=== PATIENT | male | born 1970 | race Caucasian/White ===

== ENCOUNTER 2017-03-08 06:02 | Day surgery (SDC) | payer OTHER ==
[2017-03-08] MEDS ORDERED: Lactated Ringers 1,000 ML IV SCH (07:00)
--- NOTE | 2017-03-08 08:35 | OP ---
SURGERY DATE: 03/08/17 SURGERY TIME: 756 PREOPERATIVE DIAGNOSIS: 1. SCREENING COLONOSCOPY. 2. FAMILY HISTORY OF COLON CANCER. 3. INTERMITTENT DIARRHEA. POSTOPERATIVE DIAGNOSIS: 1. NORMAL COLON. PROCEDURE: 1. Colonoscopy. SURGEON: Dr. Eleazar Saucedo. ANESTHESIA: MAC by Cecil Palmer CRNA. SPECIMENS: None. ESTIMATED BLOOD LOSS: None. DESCRIPTION OF PROCEDURE: After informed written consent was obtained, the patient was taken to the endoscopy suite. He underwent monitored anesthesia and a digital rectal exam showed normal sphincter tone and no internal lesions. The scope was then inserted in the rectum and sequentially the entire colonic mucosa was traversed. The level of the cecum was reached and verified with direct visualization of the ileocecal valve. Upon withdrawal, careful mucosal inspection revealed no obvious mucosal abnormalities. Prior to withdrawal, retroflexion was performed within normal limits. The scope was removed and the patient was transferred to the recovery room in excellent condition.
[2017-03-08] MEDS ORDERED: Ketamine HCl 50 MG/ML IV ONE (09:00)
[2017-03-08] MEDS ORDERED: DIPRIVAN 200 MG/20 ML IV ONE (09:00)
[2017-03-08 09:38] VITALS: O2SAT 98
[2017-03-08 09:42] VITALS: BP 139/77; PULSE 87
== END 2017-03-08 09:20 | disposition home or self-care (01) ==
LOC: SDC 06:02
PROVIDERS: ATTEND Family Medicine
PROC: 0DJD8ZZ Inspection of Lower Intestinal Tract, Via Natural or Artificial Opening Endoscopic (ICD-10-PCS; principal; 2017-03-08)
DX: Z12.11 Encounter for screening for malignant neoplasm of colon (principal); Z80.0 Family history of malignant neoplasm of digestive organs; R19.7 Diarrhea, unspecified
CPT/HCPCS: 00810; J2704

== ENCOUNTER 2018-04-01 14:36 | Observation (INO) | payer OTHER ==
--- NOTE | 2018-04-01 15:01 | ERPHSYRPT ---
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 PT ambulates with an upright steady gait, able to speakin clear full sentences. PT slightly tachypneic, arrived with an 18 G iv on left ac via EMS crew. PTdenies apain upon arrival. 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 ADMININSTERED 4 BABY ASPIRIN VIA EMS AND NITROGLYCERIN 0.4MG X 3 DOSES WITH COMPLETE RELIEF. DENIES COUGH OR FEVER. STATES PAIN RADIATES TO BOTH SHOULDERS. Timing/Duration: today Activities at Onset: activity Quality: pressure, sharpness Location: substernal Chest Pain Radiation: no radiation, arm Severity of Pain-Max: severe Severity of Pain-Current: mild Modifying Factors: Improves With: movement Associated Symptoms: diaphoresis Prior Chest Pain/Cardiac Workup: angina Nitro Today/Relief: 0.4 mg x 3, provided by EMS, complete relief Aspirin Treatment Today: 81 mg x 4, provided by ED Allergies/Adverse Reactions: No Known Drug Allergies Allergy (Verified 04/01/18 14:47) Home Medications: Amlodipine Besylate 10 mg [Norvasc 10 MG] 10 mg PO DAILY 03/07/17 [History] Clonidine HCl 0.1 mg [Catapres 0.1 MG] 0.1 mg PO 03/07/17 [History] Lisinopril 20 mg [Zestril 20 MG] 20 mg PO DAILY 03/07/17 [History] PANTOPRAZOLE 40 mg Tablet [Protonix 40MG Tablet] 40 mg PO [facility] 03/08/17 [ History] Zolpidem Tartrate [Ambien] 10 mg PO 03/08/17 [History] Desvenlafaxine [Desvenlafaxine ER] 100 mg PO DAILY 04/01/18 [History] Doxepin HCl 100 mg PO HS 04/01/18 [History] Hx Tetanus, Diphtheria Vaccination/Date Given: No Hx Influenza Vaccination/Date Given: Yes Hx Pneumococcal Vaccination/Date Given: Yes Immunizations Up to Date: Yes - Review of Systems Constitutional: No Fever, No Chills Eyes: No Symptoms Ears, Nose, & Throat: No Symptoms Respiratory: Dyspnea, Dyspnea on Exertion (LOVETT), No Cough Cardiac: Chest Pain, No Edema, No Syncope Abdominal/Gastrointestinal: No Symptoms, No Abdominal Pain, No Nausea, No Vomiting, No Diarrhea Genitourinary Symptoms: No Symptoms, No Dysuria Musculoskeletal: No Symptoms, No Back Pain, No Neck Pain Skin: No Symptoms, No Rash Neurological: No Dizziness, No Focal Weakness, No Sensory Changes Psychological: No Symptoms Endocrine: No Symptoms All Other Systems: Reviewed and Negative - Past Medical History Pertinent Past Medical History: Yes Neurological History: No Pertinent History ENT History: No Pertinent History Cardiac History: Hypertension Respiratory History: No Pertinent History Endocrine Medical History: No Pertinent History Musculoskeletal History: No Pertinent History GI Medical History: GERD History: No Pertinent History Psycho-Social History: No Pertinent History Male Reproductive Disorders: No Pertinent History Other Medical History: SOB with exertion prior to controlling htn 2 months ago - Past Surgical History Past Surgical History: No Neuro Surgical History: No Pertinent History Cardiac: No Pertinent History Respiratory: No Pertinent History Gastrointestinal: No Pertinent History Genitourinary: No Pertinent History Musculoskeletal: No Pertinent History Male Surgical History: No Pertinent History - Social History Smoking Status: Never smoker Exposure to second hand smoke: No Drug Use: none Patient Lives Alone: No - Nursing Vital Signs Nursing Vital Signs: Initial Vital Signs Temperature 98.6 F 04/01/18 14:41 Pulse Rate 80 04/01/18 14:41 Respiratory Rate 22 04/01/18 14:41 Blood Pressure 89/62 04/01/18 14:41 O2 Sat by Pulse Oximetry 100 04/01/18 14:41 Pain Scale Pain Intensity 4 - Physical Exam General Appearance: no apparent distress, alert Eye Exam: PERRL/EOMI, eyes nml inspection Ears, Nose, Throat Exam: normal ENT inspection, moist mucous membranes Neck Exam: normal inspection, non-tender, supple, full range of motion Respiratory Exam: normal breath sounds, lungs clear, No respiratory distress Cardiovascular Exam: regular rate/rhythm, normal heart sounds Gastrointestinal/Abdomen Exam: soft, normal bowel sounds, No tenderness, No mass Back Exam: normal inspection, No CVA tenderness, No vertebral tenderness Extremity Exam: normal inspection, normal range of motion Neurologic Exam: alert, oriented x 3, cooperative, normal mood/affect, sensation nml, No motor deficits Skin Exam: normal color, warm, dry SpO2: 100 Oxygen Delivery: Room Air - Course EKG Interpreted by Me: RATE, Sinus Rhythm, NORMAL AXIS (RATE 91) - Radiology Exams Chest X-ray Interpretation: Discussed w/ radiologist, Negative Ordered Tests: Active Orders 24 hr Category Date Time Status Up With Assistance ROUTINE Activity 04/01/18 16:32 Ordered Call Admit Doctor for Orders ROUTINE Care 04/01/18 16:31 Ordered Code Status Order ROUTINE Care 04/01/18 16:31 Ordered EKG-ER Only STAT Care 04/01/18 15:02 Active IV Care Q6H Care 04/01/18 16:31 Ordered IV Insertion STAT Care 04/01/18 15:02 Active Implement Chest Pain Pathway ROUTINE Care 04/01/18 16:31 Ordered Oxygen-ED Only NASAL CANNULA 2 lpm Care 04/01/18 15:[address] in Observation ROUTINE Care 04/01/18 16:31 Ordered Julian Hose, Apply ROUTINE Care 04/01/18 16:31 Ordered Telemetry ROUTINE Care 04/01/18 16:31 Ordered Vital Signs Q4H Care 04/01/18 16:31 Ordered Weight,Daily 0600 Care 04/01/18 16:31 Ordered Cardiac Diet Diet 04/01/18 Breakfast Ordered CHEST 1 VIEW (PORTABLE) Stat Exams 04/01/18 15:02 Completed BNP [NT PRO BNP] Stat Lab 04/01/18 15:30 Completed CBC W DIFF Stat Lab 04/01/18 15:30 Completed CMP Stat Lab 04/01/18 15:30 Completed D-DIMER QUANTITATION Stat Lab 04/01/18 15:30 Completed LIPID PROFILE AM.LAB Lab 04/02/18 04:00 Ordered PROTIME WITH INR Stat Lab 04/01/18 15:30 Completed TROPONIN Q3H Lab 04/01/18 15:30 Completed TROPONIN Q3H Lab 04/01/18 18:15 Ordered TROPONIN Q3H Lab 04/01/18 21:15 Ordered TROPONIN Q3H Lab 04/02/18 00:15 Ordered TROPONIN Q3H Lab 04/02/18 03:15 Ordered EKG Q8HX2,QAMX3,PRN RT 04/01/18 16:31 Ordered Pulse Oximetry Q4H RT 04/01/18 16:31 Ordered Transfer Order Routine Transfer 04/01/18 Ordered Medication Summary Generic Name Dose Route Start Last Admin Trade Name Ganesh PRN Reason Stop Dose Admin Sodium Chloride 1,000 mls @ 200 mls/hr 04/01/18 15:15 04/01/18 15:35 Sodium Chloride 0.9% 1000 Ml IV 05/01/18 15:14 200 mls/hr .Q5H TAYLER Administration Discontinued Medications Generic Name Dose Route Start Last Admin Trade Name Ganesh PRN Reason Stop Dose Admin Enoxaparin Sodium 100 mg 04/01/18 16:02 Enoxaparin Sodium 1 mg/kg (100 mg) 04/01/18 16:03 SQ STAT ONE Morphine Sulfate 4 mg 04/01/18 15:02 04/01/18 15:35 Morphine Sulfate 4 Mg Inj IV 04/01/18 15:03 4 mg STAT ONE Administration Morphine Sulfate Confirm 04/01/18 15:32 Morphine Sulfate 4 Mg Inj Administered 04/01/18 15:33 Dose 4 mg .ROUTE .STK-MED ONE Ondansetron HCl 4 mg 04/01/18 15:02 04/01/18 15:35 Zofran 4 Mg/2 Ml Vial IV 04/01/18 15:03 4 mg STAT ONE Administration Ondansetron HCl Confirm 04/01/18 15:32 Zofran 4 Mg/2 Ml Vial Administered 04/01/18 15:33 Dose 4 mg .ROUTE .STK-MED ONE Lab/Rad Data: Laboratory Result Diagrams 04/01/18 15:30 04/01/18 15:30 Laboratory Results 04/01/18 04/01/18 04/01/18 Range/Units 15:30 15:30 15:30 WBC (4.0-10.5) K/mm3 RBC (4.1-5.6) M/mm3 Hgb (12.5-18.0) gm/dl Hct (42-50) % MCV (78-100) fl MCH (26-32) pg MCHC (32-36) g/dl RDW (11.5-14.0) % Plt Count (150-450) K/mm3 MPV (6-9.5) fl Gran % (36.0-66.0) % Eos # (Auto) (0-0.5) Absolute Lymphs (auto) (1.0-4.6) Absolute Monos (auto) (0.0-1.3) Lymphocytes % (24.0-44.0) % Monocytes % (0.0-12.0) % Eosinophils % (0.00-5.0) % Basophils % (0.0-0.4) % Absolute Granulocytes (1.4-6.9) Basophils # (0-0.4) PT 12.0 (8.83-12.87) SECONDS INR 1.03 (0.8-3.0) D-Dimer 728 H* (215-500) ng/mL Sodium (137-145) mmol/L Potassium (3.5-5.1) mmol/L Chloride (98-107) mmol/L Carbon Dioxide (22-30) mmol/L Anion Gap (5-15) MEQ/L BUN (9-20) mg/dL Creatinine (0.66-1.25) mg/dL Estimated GFR ML/MIN Glucose (74-106) mg/dL Calcium (8.4-10.2) mg/dL Total Bilirubin (0.2-1.3) mg/dL AST (17-59) U/L ALT (0-50) U/L Alkaline Phosphatase (38-126) U/L Troponin I < 0.012 (0.000-0.034) ng/mL NT-Pro-B Natriuret Pep 84.0 (0-450) pg/mL Serum Total Protein (6.3-8.2) g/dL Albumin (3.5-5.0) g/dL 04/01/18 04/01/18 Range/Units 15:30 15:30 WBC 8.9 (4.0-10.5) K/mm3 RBC 4.21 (4.1-5.6) M/mm3 Hgb 13.2 (12.5-18.0) gm/dl Hct 37.7 L (42-50) % MCV 89.5 (78-100) fl MCH 31.4 (26-32) pg MCHC 35.0 (32-36) g/dl RDW 12.7 (11.5-14.0) % Plt Count 380 (150-450) K/mm3 MPV 8.9 (6-9.5) fl Gran % 72.6 H (36.0-66.0) % Eos # (Auto) 0.11 (0-0.5) Absolute Lymphs (auto) 1.46 (1.0-4.6) Absolute Monos (auto) 0.85 (0.0-1.3) Lymphocytes % 16.4 L (24.0-44.0) % Monocytes % 9.5 (0.0-12.0) % Eosinophils % 1.2 (0.00-5.0) % Basophils % 0.3 (0.0-0.4) % Absolute Granulocytes 6.47 (1.4-6.9) Basophils # 0.03 (0-0.4) PT (8.83-12.87) SECONDS INR (0.8-3.0) D-Dimer (215-500) ng/mL Sodium 132 L (137-145) mmol/L Potassium 4.4 (3.5-5.1) mmol/L Chloride 99 (98-107) mmol/L Carbon Dioxide 21 L (22-30) mmol/L Anion Gap 17.4 H (5-15) MEQ/L BUN 25 H (9-20) mg/dL Creatinine 1.57 H (0.66-1.25) mg/dL Estimated GFR 50.2 ML/MIN Glucose 95 (74-106) mg/dL Calcium 10.3 H (8.4-10.2) mg/dL Total Bilirubin 0.50 (0.2-1.3) mg/dL AST 38 (17-59) U/L ALT 28 (0-50) U/L Alkaline Phosphatase 93 (38-126) U/L Troponin I (0.000-0.034) ng/mL NT-Pro-B Natriuret Pep (0-450) pg/mL Serum Total Protein 7.9 (6.3-8.2) g/dL Albumin 4.6 (3.5-5.0) g/dL - Progress Progress: improved Progress Note: 04/01/18 16:26 ADMINISTERED IV NORMAL SALINE 100ML/HR, ZOFRAN 4MG, MORPHINE 4MG IV, REMAINS PAIN FREE THROUGH OUR EMERGENCY VISIT, ELEVATED [id number], HAS GFR-50, ADMINISTERED LOVENOX 100MG SUBQ, WILL SCHEDULE V/Q SCAN FOR TOMORROW Discussed with : Leroy (DISCUSSED WITH DR OLVERA AT 1620 FOR OBSERVATION) - Departure Time of Disposition: 16:35 Departure Disposition: Observation Clinical Impression: ACUTE CHEST PAIN Condition: Stable Critical Care Time: No Referrals: GIANNI ORDOÑEZ MD [Primary Care Provider] -
[2018-04-01] MEDS ORDERED: MORPHINE SULFATE 4 MG INJ IV ONE (15:02)
[2018-04-01] MEDS ORDERED: Zofran 4 MG/2 ML VIAL IV ONE (15:02)
[2018-04-01 15:30] LABS: BASOPHIL % 0.3 % (0.0-0.4); Basophil (Absolute #) 0.03 (0-0.4); Eosinophil % 1.2 % (0.00-5.0); Eosinophil (Absolute #) 0.11 (0-0.5); Granulocyte Absolute (ANC) 6.47 (1.4-6.9); Granulocytes % 72.6 % (36.0-66.0); Hematocrit 37.7 % (42-50); Hemoglobin 13.2 gm/dl (12.5-18.0); Lymphocyte (Absolute #) 1.46 (1.0-4.6); Lymphocytes % 16.4 % (24.0-44.0); Mean Cell Volume 89.5 fl (78-100); Mean Corpuscular Hemoglobin 31.4 pg (26-32); Mean Platelet Volume 8.9 fl (6-9.5); Monocyte (Absolute #) 0.85 (0.0-1.3); Monocytes % 9.5 % (0.0-12.0); Platelet Count 380 K/mm3 (150-450); Red Blood Count 4.21 M/mm3 (4.1-5.6); Red Cell Distribution Width 12.7 % (11.5-14.0); White Blood Count 8.9 K/mm3 (4.0-10.5)
[2018-04-01] MEDS ORDERED: MORPHINE SULFATE 4 MG INJ ONE (15:32)
[2018-04-01] MEDS ORDERED: Zofran 4 MG/2 ML VIAL ONE (15:32)
[2018-04-01] MEDS: Sodium Chloride 0.9% 1000 ML 1,000 ML IV SCH ×2 (15:35→19:20)
--- NOTE | 2018-04-01 15:35 | XRAY ---
Exam: AP upright portable chest film from 04/01/2018. Comparison: None. Indication: Dyspnea. Findings: The image was obtained in a mildly lordotic projection. The patient is slightly rotated toward the left. There is adequate inflation of the chest. The heart size and contour are normal. The mane and mediastinal structures appear unremarkable. No pulmonary vascular congestion or pleural fluid is seen. No infiltrates or other soft tissue lung changes are seen. There is no pneumothorax. There is a small radiopaque density overlying the left midlung field which likely represents an external artifact from something on the patient's skin. This may be related to one of the patient's electrodes. No acute osseous process is seen. Impression: 1. No infiltrates to suggest focal pneumonia, heart failure, or other acute cardiopulmonary disease is seen.
[2018-04-01 15:45] LABS: INR 1.03 (0.8-3.0)
[2018-04-01 15:49] LABS: ALBUMIN 4.6 g/dL (3.5-5.0); ANION GAP 17.4 MEQ/L (5-15); BILIRUBIN,TOTAL 0.5 mg/dL (0.2-1.3); Calcium 10.3 mg/dL (8.4-10.2); Creatinine 1 1.57 mg/dL (0.66-1.25); Potassium 4.4 mmol/L (3.5-5.1); Total Protein 7.9 g/dL (6.3-8.2)
[2018-04-01] MEDS ORDERED: ENOXAPARIN SODIUM SQ ONE ×2 (16:02→17:10)
[2018-04-01] MEDS ORDERED: Zofran 4 MG/2 ML VIAL IV PRN (16:31)
[2018-04-01] MEDS ORDERED: MILK OF MAGNESIA 30 ML PO PRN (16:31)
[2018-04-01] MEDS ORDERED: Senokot-S Tablet PO PRN (16:31)
[2018-04-01] MEDS ORDERED: TYLENOL 325 MG PO PRN (16:31)
[2018-04-01] MEDS ORDERED: Nitrostat 0.4 MG Tablet SL PRN (16:31)
[2018-04-01] MEDS ORDERED: MAALOX ES 30 ML UNIT DOSE PO PRN (16:31)
--- NOTE | 2018-04-01 19:16 | PCM.HP ---
History of Present Illness - Chief Complaint Chief Complaint: Chest pain History of Present Illness: is a 47 year old male pt of Dr. Saucedo with HTN who was admitted through ER with SOB and chest pressure. He had been lifting large pieces of plastic for [employer] and had to go into the office to try to catch his breath. The shortness of breath grew worse and he began having generalized chest pressure, 7/10, radiating to the trapezius muscles bilat, with diaphoresis , no palpitations, no nausea. Two days ago he had an episode of LOVETT and had to interrupt work to lie down on someone's porch for 20 minutes to catch his breath. He has been having worsening LOVETT for at least the past 8 mo. In the ER his troponin was negative. He was found to have an elevated d-dimer, but was unable to have a CTA of the chest due to elevated creatinine. He denies leg swelling or pain. Currently he denies any chest pressure or shortness of breath. Two years ago he had a similar episode of LOVETT and went to [facility] ER and was diagnosed with hypertension. Currently he takes 3 anti-hypertensives. Pt's father has CAD; first had an TN at age 62. Pt has never been a smoker. He has had hyperlipidemia, but it hasn't been checked in a while. Pt has never had a stress test. - Review of Systems Respiratory: Cough, Short Of Breath Cardiac: Chest Pain Psychological: Depression, No Suicidal Ideations All Other Systems: Reviewed and Negative Medications & Allergies Home Medications: Home Medication List Amlodipine Besylate 10 mg [Norvasc 10 MG] 10 mg PO DAILY 03/07/17 [History Confirmed 04/01/18] Clonidine HCl 0.1 mg [Catapres 0.1 MG] 0.1 mg PO HS 03/07/17 [History Confirmed 04/01/18] PANTOPRAZOLE 40 mg Tablet [Protonix 40MG Tablet] 40 mg PO QAM 03/08/17 [ History Confirmed 04/01/18] Zolpidem Tartrate [Ambien] 10 mg PO HS 03/08/17 [History Confirmed 04/01/18] Desvenlafaxine [Desvenlafaxine ER] 100 mg PO DAILY 04/01/18 [History Confirmed 04/01/18] Doxepin HCl 100 mg PO HS 04/01/18 [History Confirmed 04/01/18] Fluticasone Propionate [Flonase NASAL] 1 spray NS DAILY 04/01/18 [History Confirmed 04/01/18] Lisinopril/Hydrochlorothiazide [Lisinopril-Hctz 20-12.5 mg Tab] 1 each PO DAILY 04/01/18 [History Confirmed 04/01/18] Allergies/Adverse Reactions: Allergies Allergy/AdvReac Type Severity Reaction Status Date / Time No Known Drug Allergies Allergy Verified 04/01/18 14:47 - Past Medical History Past Medical History: Yes Neurological History: No Pertinent History ENT History: No Pertinent History Cardiac History: Hypertension Respiratory History: No Pertinent History Endocrine Medical History: No Pertinent History Musculoskelatal History: No Pertinent History GI Medical History: GERD History: No Pertinent History Pyscho-Social History: No Pertinent History Male Reproductive Disorders: No Pertinent History Comment: SOB with exertion prior to controlling htn 2 months ago - Past Surgical History Past Surgical History: No Neuro Surgical History: No Pertinent History Cardiac History: No Pertinent History Respiratory Surgery: No Pertinent History GI Surgical History: No Pertinent History Genitourinary Surgical Hx: No Pertinent History Musculskeletal Surgical Hx: No Pertinent History Male Surgical History: No Pertinent History - Social History Smoking Status: Never smoker Exposure to second hand smoke: No Alcohol: None Drug Use: none - Physical Exam Vital Signs: Vital Signs - 24 hr Temp Pulse Pulse Resp BP Pulse Ox 04/01/18 18:10 98.5 F 89 18 136/77 100 04/01/18 17:19 88 18 129/86 100 04/01/18 16:35 100 04/01/18 16:00 98.4 F 80 18 126/74 100 04/01/18 15:26 81 18 125/74 99 04/01/18 14:41 98.6 F 82 80 22 89/62 100 Oxygen-Last 24 hours O2 Percentage 2 Liters = 28% General Appearance: no apparent distress, alert, obese Neurologic Exam: oriented x 3, cooperative Eye Exam: eyes nml inspection Ears, Nose, Throat Exam: moist mucous membranes Neck Exam: normal inspection, non-tender, No lymphadenopathy Respiratory Exam: normal breath sounds, lungs clear, No crackles/rales, No rhonchi, No wheezing Cardiovascular Exam: regular rate/rhythm, normal heart sounds, No murmur Gastrointestinal/Abdomen Exam: soft, normal bowel sounds, No tenderness, No distention, No mass, No guarding, No rebound Back Exam: normal inspection, No rash Extremity Exam: No pedal edema, No swelling Skin Exam: normal color, warm, dry, No rash Results - Labs Lab/Micro Results: Lab Results-Last 24 Hours 04/01/18 04/01/18 04/01/18 Range/Units 15:30 15:30 15:30 WBC 8.9 (4.0-10.5) K/mm3 RBC 4.21 (4.1-5.6) M/mm3 Hgb 13.2 (12.5-18.0) gm/dl Hct 37.7 L (42-50) % MCV 89.5 (78-100) fl MCH 31.4 (26-32) pg MCHC 35.0 (32-36) g/dl RDW 12.7 (11.5-14.0) % Plt Count 380 (150-450) K/mm3 MPV 8.9 (6-9.5) fl Gran % 72.6 H (36.0-66.0) % Eos # (Auto) 0.11 (0-0.5) Absolute Lymphs (auto) 1.46 (1.0-4.6) Absolute Monos (auto) 0.85 (0.0-1.3) Lymphocytes % 16.4 L (24.0-44.0) % Monocytes % 9.5 (0.0-12.0) % Eosinophils % 1.2 (0.00-5.0) % Basophils % 0.3 (0.0-0.4) % Absolute Granulocytes 6.47 (1.4-6.9) Basophils # 0.03 (0-0.4) PT 12.0 (8.83-12.87) SECONDS INR 1.03 (0.8-3.0) D-Dimer 728 H* (215-500) ng/mL Sodium 132 L (137-145) mmol/L Potassium 4.4 (3.5-5.1) mmol/L Chloride 99 (98-107) mmol/L Carbon Dioxide 21 L (22-30) mmol/L Anion Gap 17.4 H (5-15) MEQ/L BUN 25 H (9-20) mg/dL Creatinine 1.57 H (0.66-1.25) mg/dL Estimated GFR 50.2 ML/MIN Glucose 95 (74-106) mg/dL Calcium 10.3 H (8.4-10.2) mg/dL Total Bilirubin 0.50 (0.2-1.3) mg/dL AST 38 (17-59) U/L ALT 28 (0-50) U/L Alkaline Phosphatase 93 (38-126) U/L Troponin I (0.000-0.034) ng/mL NT-Pro-B Natriuret Pep (0-450) pg/mL Serum Total Protein 7.9 (6.3-8.2) g/dL Albumin 4.6 (3.5-5.0) g/dL 04/01/18 04/01/18 04/01/18 Range/Units 15:30 15:30 18:10 WBC (4.0-10.5) K/mm3 RBC (4.1-5.6) M/mm3 Hgb (12.5-18.0) gm/dl Hct (42-50) % MCV (78-100) fl MCH (26-32) pg MCHC (32-36) g/dl RDW (11.5-14.0) % Plt Count (150-450) K/mm3 MPV (6-9.5) fl Gran % (36.0-66.0) % Eos # (Auto) (0-0.5) Absolute Lymphs (auto) (1.0-4.6) Absolute Monos (auto) (0.0-1.3) Lymphocytes % (24.0-44.0) % Monocytes % (0.0-12.0) % Eosinophils % (0.00-5.0) % Basophils % (0.0-0.4) % Absolute Granulocytes (1.4-6.9) Basophils # (0-0.4) PT (8.83-12.87) SECONDS INR (0.8-3.0) D-Dimer (215-500) ng/mL Sodium (137-145) mmol/L Potassium (3.5-5.1) mmol/L Chloride (98-107) mmol/L Carbon Dioxide (22-30) mmol/L Anion Gap (5-15) MEQ/L BUN (9-20) mg/dL Creatinine (0.66-1.25) mg/dL Estimated GFR ML/MIN Glucose (74-106) mg/dL Calcium (8.4-10.2) mg/dL Total Bilirubin (0.2-1.3) mg/dL AST (17-59) U/L ALT (0-50) U/L Alkaline Phosphatase (38-126) U/L Troponin I < 0.012 < 0.012 (0.000-0.034) ng/mL NT-Pro-B Natriuret Pep 84.0 (0-450) pg/mL Serum Total Protein (6.3-8.2) g/dL Albumin (3.5-5.0) g/dL - Radiology Impressions Radiology Exams & Impressions: Radiology Procedures Category Date Time Status CHEST 1 VIEW (PORTABLE) Stat Exams 04/01/18 15:02 Completed PULMONARY PERF VENTILATION [NUCMED] Routine Exams 04/02/18 08:00 Ordered - Other Procedures and Tests Respiratory Therapy 04/01/18 16:31 EKG Q8HX2,QAMX3,PRN 04/01/18 22:30 EKG ROUTINE 04/02/18 05:00 EKG ROUTINE 04/03/18 05:00 EKG ROUTINE 04/04/18 05:00 EKG ROUTINE Assessment/Plan (1) Shortness of breath Current Visit: Yes Status: Acute Assessment & Plan: This has resolved for now. Likely cardiac etiology, based on history. PE less likely with intermittent nature of dyspnea. However, will re-assess symptoms in the morning. Would like to do doppler LE tomorrow to rule out any chronic DVTs causing chronic episodic symptoms. Code(s): R06.02 - SHORTNESS OF BREATH (2) Dyspnea on exertion Current Visit: Yes Status: Chronic Assessment & Plan: echocardiogram tomorrow. Code(s): R06.09 - OTHER FORMS OF DYSPNEA (3) Chest pain Current Visit: Yes Status: Acute Qualifiers: Chest pain type: unspecified Qualified Code(s): R07.9 - Chest pain, unspecified Assessment & Plan: Will rule out TN with set of 5 troponins. Outpatient stress test. Code(s): R07.9 - CHEST PAIN, UNSPECIFIED (4) Hypertension Current Visit: Yes Status: Chronic Qualifiers: Hypertension type: essential hypertension Qualified Code(s): I10 - Essential (primary) hypertension Assessment & Plan: Continue home meds. He only takes his clonidine at night because it makes him sleepy. Code(s): I10 - ESSENTIAL (PRIMARY) HYPERTENSION (5) Obesity Current Visit: Yes Status: Chronic Qualifiers: Obesity type: due to excess calories Obesity classification: adult class 1 (BMI 30 - 34.9) Serious obesity comorbidity presence: with serious comorbidity Body mass index: BMI 31.0-31.9 Qualified Code(s): E66.09 - Other obesity due to excess calories; Z68.31 - Body mass index (BMI) 31.0-31.9, adult Code(s): E66.9 - OBESITY, UNSPECIFIED (6) Hyperlipidemia Current Visit: Yes Status: Acute Assessment & Plan: recheck in a.m. Code(s): E78.5 - HYPERLIPIDEMIA, UNSPECIFIED
[2018-04-01] MEDS ORDERED: Catapres 0.1 MG ONE (19:58)
[2018-04-01] MEDS ORDERED: Ambien 10 MG ONE (19:59)
[2018-04-01] MEDS ORDERED: Catapres 0.1 MG PO SCH (22:00)
[2018-04-01] MEDS ORDERED: Ambien 10 MG PO SCH (22:00)
[2018-04-02] MEDS: Sodium Chloride 0.9% 1000 ML 1,000 ML IV SCH ×2 (00:45→11:33)
[2018-04-02 03:51] LABS: ANION GAP 12.9 MEQ/L (5-15); BLOOD UREA NITROGEN 21 mg/dL (9-20); CHLORIDE 105 mmol/L (98-107); Calcium 8.8 mg/dL (8.4-10.2); Carbon Dioxide 21 mmol/L (22-30); Creatinine 1 1.03 mg/dL (0.66-1.25); Glucose 96 mg/dL (74-106); Potassium 4.4 mmol/L (3.5-5.1); SODIUM 135 mmol/L (137-145)
[2018-04-02 04:01] LABS: Hematocrit 37.9 % (42-50); Hemoglobin 12.9 gm/dl (12.5-18.0); Mean Cell Volume 92.4 fl (78-100); Mean Corpuscular Hemoglobin 31.5 pg (26-32); Platelet Count 326 K/mm3 (150-450); Red Cell Distribution Width 13.1 % (11.5-14.0); Risk Ratio 6.9
[2018-04-02] MEDS ORDERED: ENOXAPARIN SODIUM SQ SCH (06:00)
[2018-04-02] MEDS ORDERED: Sodium Chloride 0.9% 500 ML 500 ML IV ONE (09:20)
[2018-04-02] MEDS ORDERED: DESVENLAFAXINE 100 MG PO SCH (10:00)
[2018-04-02] MEDS ORDERED: Protonix 40MG Tablet PO SCH (10:00)
[2018-04-02] MEDS ORDERED: NORVASC 5 MG PO SCH (10:00)
[2018-04-02] MEDS ORDERED: Zestril 20 MG PO SCH (10:00)
[2018-04-02] MEDS ORDERED: PRISTIQ ER PO SCH (10:00)
[2018-04-02] MEDS ORDERED: Ecotrin 325 MG PO SCH (10:00)
[2018-04-02] MEDS ORDERED: Flonase NASAL NS SCH (10:00)
[2018-04-02] MEDS ORDERED: hydroDIURIL 25 MG PO SCH (10:00)
[2018-04-02 11:39] VITALS: BP 102/53; PULSE 82; O2SAT 97
--- NOTE | 2018-04-02 11:59 | XRAY ---
Exam: Bilateral lower extremity duplex Doppler venous ultrasound examination from December 31, 2017. Comparison: None. Indication: Recurrent shortness of breath, rule out deep venous thrombosis. Technique: Ervin scale images, color flow images, and Doppler tracings were obtained of both lower extremities in the usual manner to evaluate the deep venous structures. Findings: Within the right lower extremity, normal transducer compression, color flow imaging, and Doppler signal augmentation was seen within employment representative segments of the common femoral vein, profunda femoral vein, superficial femoral vein, and popliteal vein. Normal transducer compression was seen involving the distal right posterior tibial veins and right greater saphenous vein. Within the left lower extremity, normal transducer compression, color flow imaging, and Doppler signal augmentation was seen within employment representative segments of the common femoral vein, profunda femoral vein, superficial femoral vein, and popliteal vein. Normal transducer compression was seen at the level of the distal left posterior tibial veins, left peroneal vein, and left greater saphenous vein. Impression: 1. No sonographic or Doppler evidence of deep venous thrombosis is seen within either lower extremity.
--- NOTE | 2018-04-02 13:22 | XRAY ---
Exam: CTA of the chest with IV contrast per PE protocol from 04/02/2018. CTDI: 28.14 Comparison: AP upright portable chest film from 04/01/2018. Indication: Shortness of breath with heaviness in chest, elevated d-dimer of 728. Technique: Post-IV contrast axial images were obtained through the chest per PE protocol during automated IV injection of 100 ML's of Isovue 370 contrast material. Reconstructed coronal and sagittal images were created and reviewed. Findings: The pulmonary arteries are fairly well-opacified and reveal no filling defects to suggest clot/emboli. Small granulomatous calcifications are seen at the posterior margin of the right hilum. The thoracic aorta appears of normal diameter and reveals no aortic dissection. The thyroid gland appears unremarkable. There is a small hiatal hernia which also contains a small amount of intraperitoneal fat around it. No abnormal soft tissue lymphadenopathy is seen within the mediastinum or mane. The heart size is normal without pericardial effusion. Some right coronary vascular calcification is seen. The lungs are well expanded and reveal no infiltrates, significant interstitial lung disease, or suspicious soft tissue lung nodules. No pneumothorax or posterior pleural fluid is seen. Minimal pleural thickening is seen within the posterior lung sulci. I also see minimal linear scarring/atelectasis within the right posterior lung sulcus tip. The trachea and major branching bronchi appear open. The visualized upper abdomen appears unremarkable. The adrenal glands appear normal. The gallbladder is mostly contracted. Mild atherosclerotic vascular calcification is seen within the proximal abdominal aorta. There appears to be a pill density within the stomach lumen on axial image #138. The skeleton reveals no acute fracture or aggressive bone lesion. Mild diffuse thoracic vertebral endplate spurring is seen. Impression: 1. I see no findings to suggest acute pulmonary embolism. Nor do I see evidence of thoracic aortic aneurysm or dissection. 2. Small hiatal hernia. 3. No acute cardiopulmonary disease is seen.
--- NOTE | 2018-04-02 14:14 | PCM.DS ---
Discharge Summary Date of Admission: 04/01/18 17:43 Admitting Physician: BABS OLVERA Primary Care Provider: GIANNI ORDOÑEZ Allergies Allergies No Known Drug Allergies Allergy (Verified 04/01/18 14:47) Hospital Summary - Hospital Course Hospital Course: Pt came to ER c/o SOB; d-dimer found to be elevated but Cr was 1.57 so he was admitted, given therapeutic lovenox dosage, and scheduled for VQ scan in the morning. His Cr today was 1.03 so he was hydrated before and after a CTA chest was done (was negative) instead of VQ scan. Troponins were negative. He had complained of chronic intermittent LOVETT which is worsening. He had an echocardiogram today and dopplers of LE (venous) were neg for DVT. He has an outpatient stress test scheduled. He is not to return to work until after his workup is complete (will need a note for at least 2 weeks out of work, with the understanding that he may be able to return earlier, but may have to be out longer). He will need to f/u with Dr. Ordoñez in 1 week. 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 - Vitals & Intake/Output Vital Signs: Vital Signs Temperature 98.1 F 04/02/18 11:38 Pulse Rate 82 04/02/18 11:38 Respiratory Rate 18 04/02/18 11:38 Blood Pressure 102/53 04/02/18 11:38 O2 Sat by Pulse Oximetry 97 04/02/18 12:00 Oxygen-Last Documented O2 Percentage 2 Liters = 28% Intake & Output: Intake & Output 03/31/18 04/01/18 04/02/18 04/03/18 11:59 11:59 11:59 11:59 Intake Total 1320 Output Total 2800 Balance -1480 Weight 99.9 kg - Lab Result Diagrams: 04/02/18 03:19 04/02/18 03:19 Lab Results-Last 24 Hrs: Lab Results-Last 24 Hours 04/01/18 04/01/18 04/01/18 Range/Units 15:30 15:30 15:30 WBC 8.9 (4.0-10.5) K/mm3 RBC 4.21 (4.1-5.6) M/mm3 Hgb 13.2 (12.5-18.0) gm/dl Hct 37.7 L (42-50) % MCV 89.5 (78-100) fl MCH 31.4 (26-32) pg MCHC 35.0 (32-36) g/dl RDW 12.7 (11.5-14.0) % Plt Count 380 (150-450) K/mm3 MPV 8.9 (6-9.5) fl Gran % 72.6 H (36.0-66.0) % Eos # (Auto) 0.11 (0-0.5) Absolute Lymphs (auto) 1.46 (1.0-4.6) Absolute Monos (auto) 0.85 (0.0-1.3) Lymphocytes % 16.4 L (24.0-44.0) % Monocytes % 9.5 (0.0-12.0) % Eosinophils % 1.2 (0.00-5.0) % Basophils % 0.3 (0.0-0.4) % Absolute Granulocytes 6.47 (1.4-6.9) Basophils # 0.03 (0-0.4) PT 12.0 (8.83-12.87) SECONDS INR 1.03 (0.8-3.0) D-Dimer 728 H* (215-500) ng/mL Sodium 132 L (137-145) mmol/L Potassium 4.4 (3.5-5.1) mmol/L Chloride 99 (98-107) mmol/L Carbon Dioxide 21 L (22-30) mmol/L Anion Gap 17.4 H (5-15) MEQ/L BUN 25 H (9-20) mg/dL Creatinine 1.57 H (0.66-1.25) mg/dL Estimated GFR 50.2 ML/MIN Glucose 95 (74-106) mg/dL Calcium 10.3 H (8.4-10.2) mg/dL Total Bilirubin 0.50 (0.2-1.3) mg/dL AST 38 (17-59) U/L ALT 28 (0-50) U/L Alkaline Phosphatase 93 (38-126) U/L Troponin I (0.000-0.034) ng/mL NT-Pro-B Natriuret Pep (0-450) pg/mL Serum Total Protein 7.9 (6.3-8.2) g/dL Albumin 4.6 (3.5-5.0) g/dL Triglycerides (30-150) mg/dL Cholesterol (50-200) mg/dL LDL Cholesterol (30-100) mg/dL HDL Cholesterol (40-60) mg/dL Heart Disease Risk Ratio 04/01/18 04/01/18 04/01/18 Range/Units 15:30 15:30 18:10 WBC (4.0-10.5) K/mm3 RBC (4.1-5.6) M/mm3 Hgb (12.5-18.0) gm/dl Hct (42-50) % MCV (78-100) fl MCH (26-32) pg MCHC (32-36) g/dl RDW (11.5-14.0) % Plt Count (150-450) K/mm3 MPV (6-9.5) fl Gran % (36.0-66.0) % Eos # (Auto) (0-0.5) Absolute Lymphs (auto) (1.0-4.6) Absolute Monos (auto) (0.0-1.3) Lymphocytes % (24.0-44.0) % Monocytes % (0.0-12.0) % Eosinophils % (0.00-5.0) % Basophils % (0.0-0.4) % Absolute Granulocytes (1.4-6.9) Basophils # (0-0.4) PT (8.83-12.87) SECONDS INR (0.8-3.0) D-Dimer (215-500) ng/mL Sodium (137-145) mmol/L Potassium (3.5-5.1) mmol/L Chloride (98-107) mmol/L Carbon Dioxide (22-30) mmol/L Anion Gap (5-15) MEQ/L BUN (9-20) mg/dL Creatinine (0.66-1.25) mg/dL Estimated GFR ML/MIN Glucose (74-106) mg/dL Calcium (8.4-10.2) mg/dL Total Bilirubin (0.2-1.3) mg/dL AST (17-59) U/L ALT (0-50) U/L Alkaline Phosphatase (38-126) U/L Troponin I < 0.012 < 0.012 (0.000-0.034) ng/mL NT-Pro-B Natriuret Pep 84.0 (0-450) pg/mL Serum Total Protein (6.3-8.2) g/dL Albumin (3.5-5.0) g/dL Triglycerides (30-150) mg/dL Cholesterol (50-200) mg/dL LDL Cholesterol (30-100) mg/dL HDL Cholesterol (40-60) mg/dL Heart Disease Risk Ratio 04/01/18 04/02/18 04/02/18 Range/Units 21:10 00:15 03:19 WBC (4.0-10.5) K/mm3 RBC (4.1-5.6) M/mm3 Hgb (12.5-18.0) gm/dl Hct (42-50) % MCV (78-100) fl MCH (26-32) pg MCHC (32-36) g/dl RDW (11.5-14.0) % Plt Count (150-450) K/mm3 MPV (6-9.5) fl Gran % (36.0-66.0) % Eos # (Auto) (0-0.5) Absolute Lymphs (auto) (1.0-4.6) Absolute Monos (auto) (0.0-1.3) Lymphocytes % (24.0-44.0) % Monocytes % (0.0-12.0) % Eosinophils % (0.00-5.0) % Basophils % (0.0-0.4) % Absolute Granulocytes (1.4-6.9) Basophils # (0-0.4) PT (8.83-12.87) SECONDS INR (0.8-3.0) D-Dimer (215-500) ng/mL Sodium (137-145) mmol/L Potassium (3.5-5.1) mmol/L Chloride (98-107) mmol/L Carbon Dioxide (22-30) mmol/L Anion Gap (5-15) MEQ/L BUN (9-20) mg/dL Creatinine (0.66-1.25) mg/dL Estimated GFR ML/MIN Glucose (74-106) mg/dL Calcium (8.4-10.2) mg/dL Total Bilirubin (0.2-1.3) mg/dL AST (17-59) U/L ALT (0-50) U/L Alkaline Phosphatase (38-126) U/L Troponin I < 0.012 < 0.012 < 0.012 (0.000-0.034) ng/mL NT-Pro-B Natriuret Pep (0-450) pg/mL Serum Total Protein (6.3-8.2) g/dL Albumin (3.5-5.0) g/dL Triglycerides (30-150) mg/dL Cholesterol (50-200) mg/dL LDL Cholesterol (30-100) mg/dL HDL Cholesterol (40-60) mg/dL Heart Disease Risk Ratio 04/02/18 04/02/18 04/02/18 Range/Units 03:19 03:19 03:19 WBC 6.0 (4.0-10.5) K/mm3 RBC 4.10 (4.1-5.6) M/mm3 Hgb 12.9 (12.5-18.0) gm/dl Hct 37.9 L (42-50) % MCV 92.4 (78-100) fl MCH 31.5 (26-32) pg MCHC 34.0 (32-36) g/dl RDW 13.1 (11.5-14.0) % Plt Count 326 (150-450) K/mm3 MPV 9.0 (6-9.5) fl Gran % (36.0-66.0) % Eos # (Auto) (0-0.5) Absolute Lymphs (auto) (1.0-4.6) Absolute Monos (auto) (0.0-1.3) Lymphocytes % (24.0-44.0) % Monocytes % (0.0-12.0) % Eosinophils % (0.00-5.0) % Basophils % (0.0-0.4) % Absolute Granulocytes (1.4-6.9) Basophils # (0-0.4) PT (8.83-12.87) SECONDS INR (0.8-3.0) D-Dimer (215-500) ng/mL Sodium 135 L (137-145) mmol/L Potassium 4.4 (3.5-5.1) mmol/L Chloride 105 (98-107) mmol/L Carbon Dioxide 21 L (22-30) mmol/L Anion Gap 12.9 (5-15) MEQ/L BUN 21 H (9-20) mg/dL Creatinine 1.03 (0.66-1.25) mg/dL Estimated GFR > 60.0 ML/MIN Glucose 96 (74-106) mg/dL Calcium 8.8 (8.4-10.2) mg/dL Total Bilirubin (0.2-1.3) mg/dL AST (17-59) U/L ALT (0-50) U/L Alkaline Phosphatase (38-126) U/L Troponin I (0.000-0.034) ng/mL NT-Pro-B Natriuret Pep (0-450) pg/mL Serum Total Protein (6.3-8.2) g/dL Albumin (3.5-5.0) g/dL Triglycerides 318 H (30-150) mg/dL Cholesterol 200 (50-200) mg/dL LDL Cholesterol 105 H (30-100) mg/dL HDL Cholesterol 29 L (40-60) mg/dL Heart Disease Risk Ratio 6.9 04/02/18 Range/Units 07:17 WBC (4.0-10.5) K/mm3 RBC (4.1-5.6) M/mm3 Hgb (12.5-18.0) gm/dl Hct (42-50) % MCV (78-100) fl MCH (26-32) pg MCHC (32-36) g/dl RDW (11.5-14.0) % Plt Count (150-450) K/mm3 MPV (6-9.5) fl Gran % (36.0-66.0) % Eos # (Auto) (0-0.5) Absolute Lymphs (auto) (1.0-4.6) Absolute Monos (auto) (0.0-1.3) Lymphocytes % (24.0-44.0) % Monocytes % (0.0-12.0) % Eosinophils % (0.00-5.0) % Basophils % (0.0-0.4) % Absolute Granulocytes (1.4-6.9) Basophils # (0-0.4) PT (8.83-12.87) SECONDS INR (0.8-3.0) D-Dimer (215-500) ng/mL Sodium (137-145) mmol/L Potassium (3.5-5.1) mmol/L Chloride (98-107) mmol/L Carbon Dioxide (22-30) mmol/L Anion Gap (5-15) MEQ/L BUN (9-20) mg/dL Creatinine (0.66-1.25) mg/dL Estimated GFR ML/MIN Glucose (74-106) mg/dL Calcium (8.4-10.2) mg/dL Total Bilirubin (0.2-1.3) mg/dL AST (17-59) U/L ALT (0-50) U/L Alkaline Phosphatase (38-126) U/L Troponin I < 0.012 (0.000-0.034) ng/mL NT-Pro-B Natriuret Pep (0-450) pg/mL Serum Total Protein (6.3-8.2) g/dL Albumin (3.5-5.0) g/dL Triglycerides (30-150) mg/dL Cholesterol (50-200) mg/dL LDL Cholesterol (30-100) mg/dL HDL Cholesterol (40-60) mg/dL Heart Disease Risk Ratio - Radiology Exams Ordered Rad Exams-Entire Visit: Radiology Procedures Category Date Time Status CHEST 1 VIEW (PORTABLE) Stat Exams 04/01/18 15:02 Completed CHEST WITH CONTRAST [CT] Urgent Exams 04/02/18 09:19 Completed ECHO W/2D AND DOPPLER [US] Routine Exams 04/02/18 11:26 Taken VENOUS BILATERAL EXTREMITY [US] Routine Exams 04/02/18 11:27 Completed - Procedures and Test Procedures and Tests throughout Hospitalization: Therapy Orders & Screens 04/01/18 16:31 EKG [id number],QAMX3,PRN Comment: 04/01/18 22:30 EKG ROUTINE Comment: 04/01/18 23:54 Oxygen NASAL CANNULA 2 lpm Comment: Diagnosis: Chest pain 04/02/18 05:00 EKG ROUTINE Comment: 04/02/18 07:00 Respiratory Therapy Assessment DAILY Comment: Diagnosis: Chest pain 04/02/18 19:24 STRESS TEST [Schedule Outpt Stress Test] Routine Comment: Diagnosis: Chest pain Schedule Outpt Stress Test: Cardiolyte Stress Test Cardiolite Stress Test: Cardiolite Lexiscan 04/03/18 05:00 EKG ROUTINE Comment: 04/04/18 05:00 EKG ROUTINE Comment: Discharge Exam General Appearance: no apparent distress, alert, obese Neurologic Exam: oriented x 3, cooperative Skin Exam: normal color, warm, dry, No rash Eye Exam: eyes nml inspection Ears, Nose, Throat Exam: moist mucous membranes Neck Exam: normal inspection Respiratory Exam: normal breath sounds, lungs clear, No crackles/rales, No rhonchi, No wheezing Cardiovascular Exam: regular rate/rhythm, normal heart sounds, No murmur Extremity Exam: normal inspection Back Exam: normal inspection, No rash Final Diagnosis/Problem List - Final Discharge Diagnosis/Problem (1) Shortness of breath Current Visit: Yes Status: Acute Assessment & Plan: He is fine at rest. CTA chest neg for PE. He will be discharged to home. F/u with outpatient stress test. F/u with Dr. Ordoñez in 1 week. (2) Dyspnea on exertion Current Visit: Yes Status: Chronic (3) Chest pain Current Visit: Yes Status: Acute Assessment & Plan: IL ruled out. (4) Hypertension Current Visit: Yes Status: Chronic Assessment & Plan: continue home meds. (5) Obesity Current Visit: Yes Status: Chronic (6) Hyperlipidemia Current Visit: Yes Status: Chronic (7) Acute renal injury Current Visit: Yes Status: Acute Assessment & Plan: Needs BMP in 2 days. - Discharge Disposition: Home, Self-Care Condition: Good Prescriptions: Continue Amlodipine Besylate 10 mg [Norvasc 10 MG] 10 mg PO DAILY Clonidine HCl 0.1 mg [Catapres 0.1 MG] 0.1 mg PO HS Zolpidem Tartrate [Ambien] 10 mg PO HS PANTOPRAZOLE 40 mg Tablet [Protonix 40MG Tablet] 40 mg PO QAM Desvenlafaxine [Desvenlafaxine ER] 100 mg PO DAILY Doxepin HCl 100 mg PO HS Lisinopril/Hydrochlorothiazide [Lisinopril-Hctz 20-12.5 mg Tab] 1 each PO DAILY Fluticasone Propionate [Flonase NASAL] 1 spray NS DAILY Instructions: Heart Healthy Diet, Chest Pain That Is Not Caused by the Heart ( DC) Additional Instructions: Cardiac Stress Test scheduled for April 08, 2018 at 7:00 AM. Please get a BMP drawn in 2 days (dx STEPH). Please no exercise or lifting (no exertion) until your workup is complete. Any chest pain, chest pressure, extreme sudden fatigue, or shortness of breath, please go to ER. Follow up with: GIANNI ORDOÑEZ MD [Primary Care Provider] - 04/11/18 11:00 am Forms: Discharge Instructions
[2018-04-02] MEDS ORDERED: DOXEPIN HCL PO SCH (22:00)
[2018-04-02] MEDS ORDERED: DOXEPIN HCL 100 MG PO SCH (22:00)
--- NOTE | 2018-04-04 08:52 | ECHO ---
DATE OF TEST: 04/02/2018 INDICATION: Recurrent dyspnea on exertion. FINDINGS: 1) Normal left ventricular wall thickness and left ventricle cavity size with normal left ventricular systolic function. Overall left ventricular ejection fraction is 60%. Left ventricle inflow Doppler examination is normal for patient's age. Right ventricle is normal in size and systolic function. 2) Left atrium is normal in size. Right atrium is borderline dilated. 3) Mitral valve is structurally normal with trace mitral regurgitation. 4) Tricuspid valve is structurally normal with trace tricuspid regurgitation and estimated pulmonary artery systolic pressure of 38 mm of [place]. 5) Aortic valve appears to be trileaflet with normal valve excursion. No aortic insufficiency was noted. 6) Pulmonic valve is grossly normal. 7) No aortic insufficiency was detected. 8) No pericardial effusion. 9) Inferior vena cava is normal in size and inspiratory collapse. IMPRESSION: 1) NORMAL LEFT VENTRICULAR SIZE AND SYSTOLIC FUNCTION. OVERALL LEFT VENTRICULAR EJECTION FRACTION IS 60%. 2) NORMAL LEFT VENTRICULAR DIASTOLIC FUNCTION. 3) TRIVIAL PULMONARY HYPERTENSION WITH ESTIMATED PA SYSTOLIC PRESSURE OF 38 MM OF MERCURY.
== END 2018-04-02 15:00 | disposition home or self-care (01) ==
LOC: ED 14:36 → MED SURG 17:43
PROVIDERS: ADMIT Family Medicine; ATTEND Family Medicine
DX: R06.02 Shortness of breath (principal); R06.09 Other forms of dyspnea; R07.9 Chest pain, unspecified; I10 Essential (primary) hypertension; E66.09 Other obesity due to excess calories; Z68.31 Body mass index [BMI] 31.0-31.9, adult; E78.5 Hyperlipidemia, unspecified; K21.9 Gastro-esophageal reflux disease without esophagitis; Z79.899 Other long term (current) drug therapy
CPT/HCPCS: 36000; 36415; 71045; 71260; 80048; 80053; 80061; 83721; 83880; 84484; 85025; 85027; 85379; 85610; 93005; 93268; 93306; 93970; 94760; 96360; 96361; 96372; 96374; 96375; 99285; J1650; J2270; J2405; A9270-GY; G0378

== ENCOUNTER 2021-04-20 19:35 | Observation (INO) | payer OTHER ==
[2021-04-20] MEDS ORDERED: Ativan 2 MG/1 ML VIAL IV ONE (21:27)
[2021-04-20] MEDS ORDERED: Sodium Chloride 0.9% 1000 ML 1,000 ML IV STA (21:29)
[2021-04-20] MEDS ORDERED: Sodium Chloride 0.9% 1000 ML 1,000 ML ONE (21:51)
[2021-04-20] MEDS ORDERED: Ativan 2 MG/1 ML VIAL ONE (21:51)
[2021-04-20 21:53] LABS: Appearance CLEAR (CLEAR); Bilirubin NEGATIVE (NEGATIVE); Blood NEGATIVE Ery/ul (0-5); Glucose 50 mg/dL (NEGATIVE); Ketones TRACE (NEGATIVE); Leukocyte Esterase NEGATIVE (NEGATIVE); Mucus SLIGHT /HPF (NEGATIVE); Nitrite NEGATIVE (NEGATIVE); Protein,Urine Dip NEGATIVE (Negative); Specific Gravity 1.014 (1.005-1.025); Urobilinogen NEGATIVE mg/dL (0-1)
[2021-04-20 22:06] LABS: Amphetamine,Urine NEGATIVE (NEGATIVE); Barbiturate,Urine NEGATIVE (NEGATIVE); Benzodiazepine,Urine NEGATIVE (NEGATIVE); Cocaine,Urine NEGATIVE (NEGATIVE); Methadone,Urine NEGATIVE (NEGATIVE); Opiate,Urine NEGATIVE (NEGATIVE); PCP,Urine NEGATIVE (NEGATIVE); THC,Urine NEGATIVE (NEGATIVE)
[2021-04-20 22:21] LABS: Absolute Neutrophil Ct (ANC) 6.15 (1.4-6.9); BASOPHIL % 0.3 % (0.0-0.4); Basophil (Absolute #) 0.02 (0-0.4); Eosinophil % 0.9 % (0.00-5.0); Eosinophil (Absolute #) 0.07 (0-0.5); Hemoglobin 13.9 gm/dl (12.5-18.0); Lymphocyte (Absolute #) 0.95 (1.0-4.6); Lymphocytes % 12.1 % (24.0-44.0); Mean Cell Volume 94.5 fl (78-100); Mean Corpuscular Hgb Concent. 33.9 g/dl (32-36); Mean Platelet Volume 8.6 fl (7.5-11.0); Monocyte (Absolute #) 0.64 (0.0-1.3); Monocytes % 8.2 % (0.0-12.0); Neutrophil % 78.5 % (36.0-66.0); Platelet Count 246 K/mm3 (150-450); Red Blood Count 4.34 M/mm3 (4.1-5.6); White Blood Count 7.8 K/mm3 (4.0-10.5)
[2021-04-20 22:33] LABS: ALKALINE PHOSPHATASE 87 U/L (38-126); ANION GAP 15.5 MEQ/L (5-15); BLOOD UREA NITROGEN 16 mg/dL (9-20); CHLORIDE 102 mmol/L (98-107); Calcium 8.7 mg/dL (8.4-10.2); Carbon Dioxide 21 mmol/L (22-30); Creatinine 1 0.92 mg/dL (0.66-1.25); EST GLOMERULAR FILTRATION RATE > 60.0 ML/MIN; ETHYL ALCOHOL < 10 mg/dL (0-10); Glucose 102 mg/dL (74-106); Potassium 3.8 mmol/L (3.5-5.1); SGOT/AST 53 U/L (17-59); SGPT/ALT 46 U/L (0-50); SODIUM 134 mmol/L (137-145)
[2021-04-21] MEDS ORDERED: Ativan 2 MG/1 ML VIAL IV PRN ×2 (03:06→07:30)
[2021-04-21] MEDS: Sodium Chloride 0.9% 1000 ML 1,000 ML IV SCH ×2 (03:14→10:00)
[2021-04-21] MEDS: VENTOLIN COMMON CANISTER IH SCH ×2 (04:46→10:23)
[2021-04-21] MEDS ORDERED: PROVENTIL 2.5 MG/3 ML NEB IH ONE (06:22)
--- NOTE | 2021-04-21 08:06 | PCM.HP ---
History of Present Illness - Chief Complaint Chief Complaint: Alcohol Withdrawl History of Present Illness: is a 50 year old male with a longstanding history of heavy alcohol use, he suffers from anxiety and has been under the care of [facility]. His last drink was around 2pm yesterday, he was apparently planning to enter alcohol detox treatment but those plans fell through and he was directed to the ER, he has had some anxiety and shaking but feels much better with alcohol detox treatment protocol at this time. - Review of Systems Constitutional: No Fever, No Chills Respiratory: No Cough, No Short Of Breath Cardiac: No Chest Pain, No Edema, No Syncope Abdominal/Gastrointestinal: No Abdominal Pain, No Nausea, No Vomiting, No Diarrhea Psychological: Alcohol Abuse, Anxiety, No Drug Abuse All Other Systems: Reviewed and Negative Medications & Allergies Home Medications: Home Medication List Amlodipine Besylate 10 mg [Norvasc 10 MG] 10 mg PO DAILY 03/07/17 [History Confirmed 04/20/21] Clonidine HCl 0.1 mg [Catapres 0.1 MG] 0.1 mg PO HS 03/07/17 [History C onfirmed 04/20/21] PANTOPRAZOLE 40 mg Tablet [Protonix 40MG Tablet] 40 mg PO QA 03/08/17 [History Confirmed 04/20/21] Zolpidem Tartrate [Ambien] 12.5 mg PO 03/08/17 [History Confirmed 04/21/21] Desvenlafaxine [Desvenlafaxine ER] 100 mg PO DAILY 04/01/18 [History Confirmed 04/20/21] Doxepin HCl 100 mg PO HS 04/01/18 [History Confirmed 04/20/21] Fluticasone Propionate [Flonase NASAL] 1 spray NS DAILY 04/01/18 [History Confirmed 04/20/21] Lisinopril/Hydrochlorothiazide [Lisinopril-Hctz 20-12.5 mg Tab] 1 each PO DAILY 04/01/18 [History Confirmed 04/20/21] Albuterol Sulfate [Albuterol Sulfate Hfa] 2 puffs .ROUTE QID 04/21/21 [History Confirmed 04/21/21] Aspirin EC 81 mg [Ecotrin 81 mg] 81 mg PO DAILY 04/21/21 [History Confirmed 04/21/21] Diclofenac Sodium 50 mg [Voltaren 50 mg] 75 mg PO BID 04/21/21 [History Confirmed 04/21/21] Isosorbide Mononitrate 30 mg [Imdur 30 MG] 60 mg PO DAILY 04/21/21 [History Confirmed 04/21/21] Nitroglycerin 0.4 mg Tablet [Nitrostat 0.4 MG Tablet] 1 mg PO DAILY 04/21/21 [History Confirmed 04/21/21] Allergies/Adverse Reactions: Allergies Allergy/AdvReac Type Severity Reaction Status Date / Time No Known Drug Allergies Allergy Verified 04/20/21 21:05 - Past Medical History Past Medical History: Yes Neurological History: Migraines ENT History: No Pertinent History Cardiac History: High Cholesterol, Hypertension Respiratory History: Asthma Endocrine Medical History: No Pertinent History Musculoskelatal History: No Pertinent History GI Medical History: GERD History: No Pertinent History Pyscho-Social History: Anxiety, Depression Male Reproductive Disorders: No Pertinent History Comment: SOB with exertion prior to controlling htn 2 months ago - Past Surgical History Past Surgical History: No Neuro Surgical History: No Pertinent History Cardiac History: No Pertinent History Respiratory Surgery: No Pertinent History GI Surgical History: No Pertinent History Genitourinary Surgical Hx: No Pertinent History Musculskeletal Surgical Hx: No Pertinent History Male Surgical History: No Pertinent History Other Surgical History: lypoma removed on neck - Social History Smoking Status: Never smoker Exposure to second hand smoke: Yes Alcohol: Daily Drug Use: none - Physical Exam Vital Signs: Vital Signs - 24 hr Temp Pulse Resp BP Pulse Ox 04/21/21 07:59 98.3 F 102 H 20 136/92 97 04/21/21 04:46 102 H 20 96 04/21/21 04:00 97.4 F 101 H 20 149/90 97 04/21/21 03:25 96 H 20 94 L 04/21/21 02:27 98.7 F 103 H 20 150/92 99 04/21/21 02:18 97 H 18 137/85 95 04/21/21 01:00 97.6 F 110 H 16 136/85 96 04/20/21 21:02 98.6 F 114 H 24 158/99 95 General Appearance: no apparent distress, anxiety (mild) Neurologic Exam: alert, oriented x 3, cooperative Ears, Nose, Throat Exam: normal ENT inspection Respiratory Exam: normal breath sounds, lungs clear, No respiratory distress Cardiovascular Exam: regular rate/rhythm, normal heart sounds, normal peripheral pulses Gastrointestinal/Abdomen Exam: soft, normal bowel sounds, No tenderness, No mass Skin Exam: normal color, warm, dry, No rash Results - Labs Lab/Micro Results: Lab Results-Last 24 Hours 04/20/21 04/20/21 04/20/21 Range/Units 21:33 21:33 21:40 WBC 7.8 (4.0-10.5) K/mm3 RBC 4.34 (4.1-5.6) M/mm3 Hgb 13.9 (12.5-18.0) gm/dl Hct 41.0 L (42-50) % MCV 94.5 (78-100) fl MCH 32.0 (26-32) pg MCHC 33.9 (32-36) g/dl RDW 14.0 (11.5-14.0) % Plt Count 246 (150-450) K/mm3 MPV 8.6 (7.5-11.0) fl Gran % 78.5 H (36.0-66.0) % Eos # (Auto) 0.07 (0-0.5) Absolute Lymphs (auto) 0.95 L (1.0-4.6) Absolute Monos (auto) 0.64 (0.0-1.3) Lymphocytes % 12.1 L (24.0-44.0) % Monocytes % 8.2 (0.0-12.0) % Eosinophils % 0.9 (0.00-5.0) % Basophils % 0.3 (0.0-0.4) % Absolute Granulocytes 6.15 (1.4-6.9) Basophils # 0.02 (0-0.4) Sodium (137-145) mmol/L Potassium (3.5-5.1) mmol/L Chloride (98-107) mmol/L Carbon Dioxide (22-30) mmol/L Anion Gap (5-15) MEQ/L BUN (9-20) mg/dL Creatinine (0.66-1.25) mg/dL Estimated GFR ML/MIN Glucose (74-106) mg/dL Calcium (8.4-10.2) mg/dL Total Bilirubin (0.2-1.3) mg/dL AST (17-59) U/L ALT (0-50) U/L Alkaline Phosphatase (38-126) U/L Serum Total Protein (6.3-8.2) g/dL Albumin (3.5-5.0) g/dL Urine Color YELLOW (YELLOW) Urine Appearance CLEAR (CLEAR) Urine pH 6.0 (5-6) Ur Specific [place] 1.014 (1.005-1.025) Urine Protein NEGATIVE (Negative) Urine Ketones TRACE (NEGATIVE) Urine Blood NEGATIVE (0-5) Dhruv/ul Urine Nitrite NEGATIVE (NEGATIVE) Urine Bilirubin NEGATIVE (NEGATIVE) Urine Urobilinogen NEGATIVE (0-1) mg/dL Ur Leukocyte Esterase NEGATIVE (NEGATIVE) Urine WBC (Auto) NONE (0-5) /HPF Urine RBC (Auto) NONE (0-2) /HPF U Epithel Cells (Auto) NONE (FEW) /HPF Urine Bacteria (Auto) NONE (NEGATIVE) /HPF Urine Mucus (Auto) SLIGHT (NEGATIVE) /HPF Urine Culture Reflexed NO (NO) Urine Glucose 50 (NEGATIVE) mg/dL Urine Opiates Level NEGATIVE (NEGATIVE) Ur Methadone NEGATIVE (NEGATIVE) Urine Barbiturates NEGATIVE (NEGATIVE) Ur Phencyclidine (PCP) NEGATIVE (NEGATIVE) Urine Amphetamine NEGATIVE (NEGATIVE) U Benzodiazepine Level NEGATIVE (NEGATIVE) Urine Cocaine NEGATIVE (NEGATIVE) Urine Marijuana (THC) NEGATIVE (NEGATIVE) Ethyl Alcohol (0-10) mg/dL SARS-CoV-2 (PCR) (NEGATIVE) 04/20/21 04/20/21 Range/Units 21:40 23:20 WBC (4.0-10.5) K/mm3 RBC (4.1-5.6) M/mm3 Hgb (12.5-18.0) gm/dl Hct (42-50) % MCV (78-100) fl MCH (26-32) pg MCHC (32-36) g/dl RDW (11.5-14.0) % Plt Count (150-450) K/mm3 MPV (7.5-11.0) fl Gran % (36.0-66.0) % Eos # (Auto) (0-0.5) Absolute Lymphs (auto) (1.0-4.6) Absolute Monos (auto) (0.0-1.3) Lymphocytes % (24.0-44.0) % Monocytes % (0.0-12.0) % Eosinophils % (0.00-5.0) % Basophils % (0.0-0.4) % Absolute Granulocytes (1.4-6.9) Basophils # (0-0.4) Sodium 134 L (137-145) mmol/L Potassium 3.8 (3.5-5.1) mmol/L Chloride 102 (98-107) mmol/L Carbon Dioxide 21 L (22-30) mmol/L Anion Gap 15.5 H (5-15) MEQ/L BUN 16 (9-20) mg/dL Creatinine 0.92 (0.66-1.25) mg/dL Estimated GFR > 60.0 ML/MIN Glucose 102 (74-106) mg/dL Calcium 8.7 (8.4-10.2) mg/dL Total Bilirubin 0.40 (0.2-1.3) mg/dL AST 53 (17-59) U/L ALT 46 (0-50) U/L Alkaline Phosphatase 87 (38-126) U/L Serum Total Protein 7.0 (6.3-8.2) g/dL Albumin 4.0 (3.5-5.0) g/dL Urine Color (YELLOW) Urine Appearance (CLEAR) Urine pH (5-6) Ur Specific [place] (1.005-1.025) Urine Protein (Negative) Urine Ketones (NEGATIVE) Urine Blood (0-5) Dhruv/ul Urine Nitrite (NEGATIVE) Urine Bilirubin (NEGATIVE) Urine Urobilinogen (0-1) mg/dL Ur Leukocyte Esterase (NEGATIVE) Urine WBC (Auto) (0-5) /HPF Urine RBC (Auto) (0-2) /HPF U Epithel Cells (Auto) (FEW) /HPF Urine Bacteria (Auto) (NEGATIVE) /HPF Urine Mucus (Auto) (NEGATIVE) /HPF Urine Culture Reflexed (NO) Urine Glucose (NEGATIVE) mg/dL Urine Opiates Level (NEGATIVE) Ur Methadone (NEGATIVE) Urine Barbiturates (NEGATIVE) Ur Phencyclidine (PCP) (NEGATIVE) Urine Amphetamine (NEGATIVE) U Benzodiazepine Level (NEGATIVE) Urine Cocaine (NEGATIVE) Urine Marijuana (THC) (NEGATIVE) Ethyl Alcohol < 10 (0-10) mg/dL SARS-CoV-2 (PCR) NEGATIVE (NEGATIVE) - Other Procedures and Tests Respiratory Therapy 04/21/21 03:24 Respiratory Therapy Assessment DAILY Assessment/Plan (1) Alcohol withdrawal Current Visit: Yes Status: Acute Assessment & Plan: continue detox protocol, last drink was less than 24 hours ago, explained he will likely need a few days of treatment then we can pursue further treatment after discharge. he is motivated and interested in treatment Code(s): F10.239 - ALCOHOL DEPENDENCE WITH WITHDRAWAL, UNSPECIFIED
[2021-04-21] MEDS: Ativan 2 MG/1 ML VIAL IV PRN ×2 (09:46→13:03)
[2021-04-21] MEDS ORDERED: NON-FORMULARY ITEM (Amlodipine Besylate 10 Mg [Norvasc 10 Mg] 10 MG) PO SCH (10:00)
[2021-04-21] MEDS ORDERED: VITAMIN B-1 100 MG PO SCH (10:00)
[2021-04-21] MEDS ORDERED: DESVENLAFAXINE 100 MG PO SCH (10:00)
[2021-04-21] MEDS ORDERED: THERAGRAN MULTIVITAMIN PO SCH (10:00)
[2021-04-21] MEDS ORDERED: ECOTRIN 81 MG PO SCH (10:00)
[2021-04-21] MEDS ORDERED: NORVASC 5 MG PO SCH (10:00)
[2021-04-21] MEDS ORDERED: FOLATE 1 MG PO SCH (10:00)
[2021-04-21] MEDS ORDERED: Zestril 20 MG PO SCH (10:00)
[2021-04-21] MEDS ORDERED: Imdur 60MG PO SCH (10:00)
[2021-04-21] MEDS ORDERED: hydroDIURIL 25 MG PO SCH (10:00)
[2021-04-21] MEDS ORDERED: Protonix 40MG Tablet PO SCH (10:00)
[2021-04-21] MEDS ORDERED: PRISTIQ ER PO SCH (10:00)
[2021-04-21] MEDS ORDERED: NON-FORMULARY ITEM (Lisinopril/Hydrochlorothiazide [Lisinopril-Hctz 20-12.5 Mg Tab] 1 EACH PO SCH (10:00)
[2021-04-21 11:53] VITALS: BP 145/86; O2SAT 97
[2021-04-21 13:05] VITALS: PULSE 110
[2021-04-21] MEDS ORDERED: Catapres 0.1 MG PO SCH (22:00)
== END 2021-04-21 14:50 ==
LOC: ED 19:35 → MED SURG 04-21 02:07
PROVIDERS: ADMIT Family Medicine; ATTEND Family Medicine
DX: F10.239 Alcohol dependence with withdrawal, unspecified (principal); I10 Essential (primary) hypertension; E78.00 Pure hypercholesterolemia, unspecified; Z20.822 Contact with and (suspected) exposure to COVID-19; Z79.899 Other long term (current) drug therapy
CPT/HCPCS: 36415; 80053; 80307; 81001; 85025; 93268; 94640; 94760; 96374; 99284; G0378; G0480; U0003; J2060; J7609; A9270-GY

== ENCOUNTER 2021-12-28 11:50 | Day surgery (SDC) | payer OTHER ==
[2021-12-28] MEDS ORDERED: Depo-Medrol 40 MG/ML IM ONE (11:51)
[2021-12-28] MEDS ORDERED: Marcaine Mpf 0.5% Vial 30 Ml IJ ONE (11:51)
[2021-12-28] MEDS ORDERED: DIPRIVAN 200 MG/20 ML IV ONE (14:18)
[2021-12-28] MEDS ORDERED: Lactated Ringers 1,000 ML IV ONE (15:11)
--- NOTE | 2021-12-28 16:34 | XRAY ---
Indication: Right SI joint injection. Intraoperative fluoroscopy provided for 7 seconds. 2 digital spot images submitted for interpretation demonstrates posterior needle tip projecting over the inferior right SI joint. Correlate with intraoperative findings/report.
--- NOTE | 2021-12-28 16:54 | XRAY ---
7 seconds of fluoroscopy was used in surgery for a right SI joint injection.
== END 2021-12-28 14:38 | disposition home or self-care (01) ==
LOC: SDC-PAIN 11:50
PROVIDERS: ATTEND Psychiatry & Neurology Pain Medicine
DX: M46.1 Sacroiliitis, not elsewhere classified (principal); Z79.899 Other long term (current) drug therapy
CPT/HCPCS: 27096; 72020; 77002; G0260; J1030; J2704

== ENCOUNTER 2022-03-21 17:08 | Emergency (ER) | payer OTHER ==
[2022-03-21 17:27] VITALS: BP 114/71; O2SAT 98
[2022-03-21 18:50] LABS: WBC 0-2 /HPF (0-5)
[2022-03-21 18:54] LABS: Appearance CLEAR (CLEAR)
[2022-03-21 18:55] LABS: Bilirubin NEGATIVE (NEGATIVE); Glucose NEGATIVE (NEGATIVE); Ketones NEGATIVE (NEGATIVE); Nitrite NEGATIVE (NEGATIVE); Protein,Urine Dip NEGATIVE (Negative); RBC NEGATIVE Ery/ul (0-5); Urobilinogen 0.2 mg/dL (0-1)
[2022-03-21 18:56] LABS: Urine Cultured Indicated? NO
[2022-03-21 18:57] LABS: Dipstick done @ ? MAIN LAB
[2022-03-21 19:10] LABS: Absolute Neutrophil Ct (ANC) 14.81 x10^3/uL (1.4-6.9); Basophil (Absolute #) 0.04 x10^3/uL (0-0.4); Eosinophil % 0.3 % (0.00-5.0); Eosinophil (Absolute #) 0.06 x10^3/uL (0-0.5); Hematocrit 35.2 % (42-50); Hemoglobin 11.5 g/dL (12.5-18.0); Lymphocyte (Absolute #) 1.12 x10^3/uL (1.0-4.6); Lymphocytes % 6.3 % (24.0-44.0); Mean Cell Volume 92.1 fL (78-100); Mean Corpuscular Hemoglobin 30.1 pg (26-32); Mean Corpuscular Hgb Concent. 32.7 g/dL (32-36); Mean Platelet Volume 9.7 fL (7.5-11.0); Monocyte (Absolute #) 1.76 x10^3/uL (0.0-1.3); Monocytes % 9.9 % (0.0-12.0); Platelet Count 375 x10^3/uL (150-450); Red Blood Count 3.82 x10^6/uL (4.1-5.6); Red Cell Distribution Width 14.9 % (11.5-14.0); White Blood Count 17.9 x10^3/uL (4.0-10.5)
[2022-03-21 19:16] LABS: ALBUMIN 3.5 g/dL (3.5-5.0); ALKALINE PHOSPHATASE 71 U/L (38-126); ANION GAP 13.7 MEQ/L (5-15); BLOOD UREA NITROGEN 12 mg/dL (9-20); CHLORIDE 95 mmol/L (98-107); Calcium 8.8 mg/dL (8.4-10.2); Carbon Dioxide 29 mmol/L (22-30); Creatinine 1 1.13 mg/dL (0.66-1.25); EST GLOMERULAR FILTRATION RATE > 60.0 ML/MIN; Glucose 100 mg/dL (74-106); Potassium 4.2 mmol/L (3.5-5.1); SGOT/AST 18 U/L (17-59); SGPT/ALT 14 U/L (0-50); SODIUM 134 mmol/L (137-145); Total Protein 6.1 g/dL (6.3-8.2)
[2022-03-21] MEDS ORDERED: PIPERACILLIN/TAZOBACTAM 3.375 GM in Sodium Chloride 100ML MINI-BAG PLUS 100 ML IV ONE (19:38)
[2022-03-21] MEDS ORDERED: Sodium Chloride 100ML MINI-BAG PLUS 100 ML IV ONE (19:45)
[2022-03-21] MEDS ORDERED: PIPERACILLIN/TAZOBACTAM IV ONE (19:45)
--- NOTE | 2022-03-21 19:50 | ERPHSYRPT ---
- History of Present Illness Time Seen by Provider: 03/21/22 17:30 Historian: patient Exam Limitations: no limitations Patient Subjective Stated Complaint: Abdominal pain Triage Nursing Assessment: Patient ambulated back to ED and transferred self to bed. Patient A+O X3. Patient's skin pink, warm and dry. Patient complains of lower left abdominal pain 6/10 that started two days ago. Patient also complains of constipation and fever. Patient states he did have 3 good bowel movements today, but was still having pain. Patient went to [facility] for eval and had labs and CT of abdomen and pelvis done. Patient received phone call on way home stating his WBC was elevated and to come to ED for eval. Abdomen soft and round with BS X 4. Physician History: Patient is a 51-year-old male presents to our ED as a referral from [facility] for evaluation of leukocytosis. Patient was seen in [facility] today for left lower quadrant pain. CT scan and laboratory work-up was performed. Laboratory work-up reveals a white count of 18,000. Patient was sent to our ED for further evaluation. CT scan obtained revealed a normal appendix. There was some rectal impaction. Since the CAT scan patient had a bowel movement. What appeared to be her neurogenic bladder was observed. Patient had a catheterization in our ED which revealed a normal UA. CT also revealed mesenteric lymph node with stranding and adenitis. Patient otherwise feels well. Symptoms are constant. Symptoms are moderate in intensity. No specific worsening improving factors. Patient voices no other complaints or concerns at this time. Timing/Duration: today Activities at Onset: none Quality: aching Abdominal Pain Onset Location: LLQ Pain Radiation: no radiation Severity of Pain-Max: moderate Severity of Pain-Current: mild Modifying Factors: Improves With: nothing Associated Symptoms: denies symptoms Previous symptoms: no prior history Allergies/Adverse Reactions: evolocumab [From Repatha Pushtronex] Allergy (Verified 03/21/22 17:20) Home Medications: Amlodipine Besylate 10 mg [Norvasc 10 MG] 10 mg PO DAILY 03/07/17 [History] Clonidine HCl 0.1 mg [Clonidine 0.1 mg Tablet] 0.1 mg PO HS 03/07/17 [History] PANTOPRAZOLE 40 mg Tablet [Protonix 40MG Tablet] 40 mg PO QAM 03/08/17 [History] Zolpidem Tartrate [Ambien] 12.5 mg PO HS 03/08/17 [History] Desvenlafaxine [Desvenlafaxine ER] 100 mg PO DAILY 04/01/18 [History] Doxepin HCl 100 mg PO HS 04/01/18 [History] Fluticasone Propionate [Flonase NASAL] 1 spray NS DAILY 04/01/18 [History] Lisinopril/Hydrochlorothiazide [Lisinopril-Hctz 20-12.5 mg Tab] 1 each PO DAILY 04/01/18 [History] Albuterol Sulfate [Albuterol Sulfate Hfa] 2 puffs .ROUTE QID 04/21/21 [History] Aspirin EC 81 mg [Ecotrin 81 mg] 81 mg PO DAILY 04/21/21 [History] Diclofenac Sodium 50 mg [Voltaren 50 mg] 75 mg PO BID 04/21/21 [History] Isosorbide Mononitrate 30 mg [Imdur 30 MG] 60 mg PO DAILY 04/21/21 [History] Nitroglycerin 0.4 mg Tablet [Nitrostat 0.4 MG Tablet] 1 mg PO DAILY 04/21/21 [History] Hx Tetanus, Diphtheria Vaccination/Date Given: Yes Hx Influenza Vaccination/Date Given: Yes Hx Pneumococcal Vaccination/Date Given: No Immunizations Up to Date: Yes Travel Risk - International Travel Have you traveled outside of the country in past 3 weeks: No - Coronavirus Screening Are you exhibiting any of the following symptoms?: No Close contact with a COVID-19 positive Pt in past 14-21 Days: No - Vaccine Status Have you recieved a Covid-19 vaccination: Yes Groundskeeper: Unknown - Vaccination Dates Date of 2cond Vaccination (if applicable): na Dates if Unknown: na - Review of Systems Constitutional: No Symptoms, No Fever, No Chills Eyes: No Symptoms Ears, Nose, & Throat: No Symptoms Respiratory: No Symptoms, No Cough, No Dyspnea Cardiac: No Symptoms, No Chest Pain, No Edema, No Syncope Abdominal/Gastrointestinal: No Symptoms, No Abdominal Pain, No Nausea, No Vomiting, No Diarrhea Genitourinary Symptoms: No Symptoms, No Dysuria Musculoskeletal: No Symptoms, No Back Pain, No Neck Pain Skin: No Symptoms, No Rash Neurological: No Symptoms, No Dizziness, No Focal Weakness, No Sensory Changes Psychological: No Symptoms Endocrine: No Symptoms Hematologic/Lymphatic: No Symptoms Immunological/Allergic: No Symptoms All Other Systems: Reviewed and Negative - Past Medical History Pertinent Past Medical History: Yes Neurological History: Migraines ENT History: No Pertinent History Cardiac History: High Cholesterol, Hypertension Respiratory History: Asthma Endocrine Medical History: No Pertinent History Musculoskeletal History: No Pertinent History GI Medical History: GERD History: No Pertinent History Psycho-Social History: Anxiety, Depression Male Reproductive Disorders: No Pertinent History Other Medical History: SOB with exertion prior to controlling htn 2 months ago - Past Surgical History Past Surgical History: No Neuro Surgical History: No Pertinent History Cardiac: No Pertinent History Respiratory: No Pertinent History Gastrointestinal: No Pertinent History Genitourinary: No Pertinent History Musculoskeletal: No Pertinent History Male Surgical History: No Pertinent History Other Surgical History: lypoma removed on neck - Social History Smoking Status: Never smoker Exposure to second hand smoke: No Drug Use: none Patient Lives Alone: No - Nursing Vital Signs Nursing Vital Signs: Initial Vital Signs Temperature 98.1 F 03/21/22 17:20 Pulse Rate 74 03/21/22 17:20 Respiratory Rate 18 03/21/22 17:20 Blood Pressure 114/71 03/21/22 17:20 O2 Sat by Pulse Oximetry 98 03/21/22 17:20 Pain Scale Pain Intensity 6 - Physical Exam General Appearance: no apparent distress, alert Eye Exam: PERRL/EOMI, eyes nml inspection Ears, Nose, Throat Exam: normal ENT inspection, pharynx normal, moist mucous membranes Neck Exam: normal inspection, non-tender, supple, full range of motion Respiratory Exam: normal breath sounds, lungs clear, airway intact, No respiratory distress Cardiovascular Exam: regular rate/rhythm, normal heart sounds, normal peripheral pulses Gastrointestinal/Abdomen Exam: soft, normal bowel sounds, No tenderness, No mass, No guarding Back Exam: normal inspection, normal range of motion, No CVA tenderness, No vertebral tenderness Extremity Exam: normal inspection, normal range of motion, pelvis stable Neurologic Exam: alert, oriented x 3, cooperative, normal mood/affect, nml cerebellar function, sensation nml, No motor deficits Skin Exam: normal color, warm, dry SpO2: 98 - Course Nursing assessment & vital signs reviewed: Yes Ordered Tests: Active Orders 24 hr Category Date Time Status IV Insertion STAT Care 03/21/22 17:57 Active BLOOD CULTURE Stat Lab 03/21/22 17:30 Ordered CBC W DIFF Stat Lab 03/21/22 17:30 Completed CMP Stat Lab 03/21/22 17:30 Completed PROCALCITONIN Stat Lab 03/21/22 17:25 Completed UA W/RFX CULTURE Stat Lab 03/21/22 18:38 Completed Medication Summary Generic Name Dose Route Start Last Admin Trade Name Ganesh PRN Reason Stop Dose Admin Piperacillin Sod/Tazobactam 100 mls @ 200 mls/hr 03/21/22 19:38 Sod 3.375 gm/ Sodium Chloride IV 03/21/22 20:07 STAT ONE Lab/Rad Data: Laboratory Result Diagrams 03/21/22 17:30 03/21/22 17:30 Laboratory Results 03/21/22 03/21/22 03/21/22 Range/Units 18:38 17:30 17:30 WBC 17.9 H (4.0-10.5) x10^3/uL RBC 3.82 L (4.1-5.6) x10^6/uL Hgb 11.5 L (12.5-18.0) g/dL Hct 35.2 L (42-50) % MCV 92.1 (78-100) fL MCH 30.1 (26-32) pg MCHC 32.7 (32-36) g/dL RDW 14.9 H (11.5-14.0) % Plt Count 375 (150-450) x10^3/uL MPV 9.7 (7.5-11.0) fL Gran % 83.0 H (36.0-66.0) % Immature Gran % (Auto) 0.3 (0.00-0.4) % Nucleat RBC Rel Count 0.0 (0.00-0.1) % Eos # (Auto) 0.06 (0-0.5) x10^3/uL Immature Gran # (Auto) 0.06 H (0.00-0.03) x10^3u/L Absolute Lymphs (auto) 1.12 (1.0-4.6) x10^3/uL Absolute Monos (auto) 1.76 H (0.0-1.3) x10^3/uL Absolute Nucleated RBC 0.00 (0.00-0.01) x10^3u/L Lymphocytes % 6.3 L (24.0-44.0) % Monocytes % 9.9 (0.0-12.0) % Eosinophils % 0.3 (0.00-5.0) % Basophils % 0.2 (0.0-0.4) % Absolute Granulocytes 14.81 H (1.4-6.9) x10^3/uL Basophils # 0.04 (0-0.4) x10^3/uL Sodium 134 L (137-145) mmol/L Potassium 4.2 (3.5-5.1) mmol/L Chloride 95 L (98-107) mmol/L Carbon Dioxide 29 (22-30) mmol/L Anion Gap 13.7 (5-15) MEQ/L BUN 12 (9-20) mg/dL Creatinine 1.13 (0.66-1.25) mg/dL Estimated GFR > 60.0 ML/MIN Glucose 100 (74-106) mg/dL Calcium 8.8 (8.4-10.2) mg/dL Total Bilirubin 0.70 (0.2-1.3) mg/dL AST 18 (17-59) U/L ALT 14 (0-50) U/L Alkaline Phosphatase 71 (38-126) U/L Serum Total Protein 6.1 L (6.3-8.2) g/dL Albumin 3.5 (3.5-5.0) g/dL Procalcitonin (0.030-0.080) ng/mL Urinalys Dipstick Clnc MAIN LAB Urine Color YELLOW (YELLOW) Urine Appearance CLEAR (CLEAR) Urine pH 7.0 (5-6) Ur Specific [place] 1.010 (1.005-1.025) POC Urine Protein Conf NEGATIVE (Negative) Urine Ketones NEGATIVE (NEGATIVE) Urine Nitrite NEGATIVE (NEGATIVE) Urine Bilirubin NEGATIVE (NEGATIVE) Urine Urobilinogen 0.2 (0-1) mg/dL Urine Leukocytes NEGATIVE (NEGATIVE) Urine WBC (Auto) 0-2 (0-5) /HPF Urine RBC (Auto) NONE (0-2) /HPF Urine RBC NEGATIVE (0-5) Dhruv/ul Ur Culture Indicated? NO Urine Glucose NEGATIVE (NEGATIVE) mg/dL 03/21/22 Range/Units 17:25 WBC (4.0-10.5) x10^3/uL RBC (4.1-5.6) x10^6/uL Hgb (12.5-18.0) g/dL Hct (42-50) % MCV (78-100) fL MCH (26-32) pg MCHC (32-36) g/dL RDW (11.5-14.0) % Plt Count (150-450) x10^3/uL MPV (7.5-11.0) fL Gran % (36.0-66.0) % Immature Gran % (Auto) (0.00-0.4) % Nucleat RBC Rel Count (0.00-0.1) % Eos # (Auto) (0-0.5) x10^3/uL Immature Gran # (Auto) (0.00-0.03) x10^3u/L Absolute Lymphs (auto) (1.0-4.6) x10^3/uL Absolute Monos (auto) (0.0-1.3) x10^3/uL Absolute Nucleated RBC (0.00-0.01) x10^3u/L Lymphocytes % (24.0-44.0) % Monocytes % (0.0-12.0) % Eosinophils % (0.00-5.0) % Basophils % (0.0-0.4) % Absolute Granulocytes (1.4-6.9) x10^3/uL Basophils # (0-0.4) x10^3/uL Sodium (137-145) mmol/L Potassium (3.5-5.1) mmol/L Chloride (98-107) mmol/L Carbon Dioxide (22-30) mmol/L Anion Gap (5-15) MEQ/L BUN (9-20) mg/dL Creatinine (0.66-1.25) mg/dL Estimated GFR ML/MIN Glucose (74-106) mg/dL Calcium (8.4-10.2) mg/dL Total Bilirubin (0.2-1.3) mg/dL AST (17-59) U/L ALT (0-50) U/L Alkaline Phosphatase (38-126) U/L Serum Total Protein (6.3-8.2) g/dL Albumin (3.5-5.0) g/dL Procalcitonin 0.296 H (0.030-0.080) ng/mL Urinalys Dipstick Clnc Urine Color (YELLOW) Urine Appearance (CLEAR) Urine pH (5-6) Ur Specific [place] (1.005-1.025) POC Urine Protein Conf (Negative) Urine Ketones (NEGATIVE) Urine Nitrite (NEGATIVE) Urine Bilirubin (NEGATIVE) Urine Urobilinogen (0-1) mg/dL Urine Leukocytes (NEGATIVE) Urine WBC (Auto) (0-5) /HPF Urine RBC (Auto) (0-2) /HPF Urine RBC (0-5) Dhruv/ul Ur Culture Indicated? Urine Glucose (NEGATIVE) mg/dL - Progress Progress: improved Progress Note: In light of patient's leukocytosis and positive procalcitonin we advised admission. Patient adamantly declined admission. Patient states he wanted to go home. I spoke to Dr. Baez regarding these findings. We will give patient a dose of Zosyn in our ED. Patient will be discharged with Augmentin. Dr. Baez sent Dr. Ordoñez a text for close follow-up tomorrow. Patient agrees to follow-up with Dr. Ordoñez tomorrow for reevaluation. Portions of this note were created with voice recognition technology. There may be grammatical, spelling, punctuation or sound alike errors 03/21/22 19:57 Patient declined pain medication. 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 However we will initiate antibiotics and arrange close follow-up tomorrow. Both Dr. Baez, covering Dr. Ordoñez and I feel this is a reasonable option in light of the fact the CAT scan does not show a perforated viscus appendicitis or any other acutely surgical condition. 03/21/22 20:00 Discussed with : Get Will see patient in: office Counseled pt/family regarding: lab results, diagnosis, need for follow-up, rad results - Departure Departure Disposition: Home Clinical Impression: Leukocytosis, Mesenteric adenitis, Abdominal pain Condition: Stable Critical Care Time: No Referrals: GIANNI ORDOÑEZ MD [Primary Care Provider] - Follow up/PCP as directed Additional Instructions: Discharge/Care Plan BETTINA BEACH was seen on 03/21/22 in the Emergency Room. The patient was counseled regarding Diagnosis,Lab results, Imaging studies, need for follow up and when to return to the Emergency Room. Prescriptions given: Discharge Note I have spoken with the patient and/or caregivers. I have explained the patient's condition, diagnosis and treatment plan based on the information available to me at this time. I have answered the patient's and/or caregiver's questions and addressed any concerns. The patient and/or caregivers have as good understanding of the patient's diagnosis, condition and treatment plan as can be expected at this point. The vital signs have been stable. The patient's condition is stable and appropriate for discharge from the emergency department. The patient will pursue further outpatient evaluation with the primary care physician or other designated or consulting physician as outlined in the discharge instructions. The patient and/or caregivers are agreeable to this plan of care and follow-up instructions have been explained in detail. The patient and/or caregivers have received these instruction. The patient/and or caregivers are aware that any significant change in condition or worsening of symptoms should prompt an immediate return to this or the closest emergency department or call 911. Prescriptions: Amox Tr/Potass Clav. 875 mg [Augmentin 875-125 Tablet] 875 mg PO BID 7 Days #14 tablet
[2022-03-21 20:26] VITALS: PULSE 80
== END 2022-03-21 20:26 | disposition home or self-care (01) ==
LOC: ED 17:08
DX: I88.0 Nonspecific mesenteric lymphadenitis (principal); D72.829 Elevated white blood cell count, unspecified; R10.32 Left lower quadrant pain; E78.5 Hyperlipidemia, unspecified; I10 Essential (primary) hypertension; Z79.899 Other long term (current) drug therapy
CPT/HCPCS: 36000; 36415; 80053; 81015; 84145; 85025; 87040; 96365; 99283

== ENCOUNTER 2022-05-29 17:07 | Emergency (ER) | payer OTHER ==
[2022-05-29 17:24] VITALS: O2SAT 99
[2022-05-29 17:41] LABS: Absolute Neutrophil Ct (ANC) 8.48 x10^3/uL (1.4-6.9); Basophil (Absolute #) 0.04 x10^3/uL (0-0.4); Eosinophil % 1.3 % (0.00-5.0); Eosinophil (Absolute #) 0.15 x10^3/uL (0-0.5); Hemoglobin 12.3 g/dL (12.5-18.0); Lymphocyte (Absolute #) 1.41 x10^3/uL (1.0-4.6); Lymphocytes % 12.3 % (24.0-44.0); Mean Cell Volume 93.1 fL (78-100); Mean Corpuscular Hemoglobin 30.1 pg (26-32); Mean Corpuscular Hgb Concent. 32.4 g/dL (32-36); Mean Platelet Volume 9.3 fL (7.5-11.0); Monocyte (Absolute #) 1.33 x10^3/uL (0.0-1.3); Monocytes % 11.6 % (0.0-12.0); Neutrophil % 74.2 % (36.0-66.0); Platelet Count 459 x10^3/uL (150-450); Red Blood Count 4.08 x10^6/uL (4.1-5.6); White Blood Count 11.5 x10^3/uL (4.0-10.5)
[2022-05-29 17:54] LABS: ALBUMIN 4.2 g/dL (3.5-5.0); ALKALINE PHOSPHATASE 82 U/L (38-126); AMYLASE 50 U/L (30-110); ANION GAP 11.5 MEQ/L (5-15); BLOOD UREA NITROGEN 12 mg/dL (9-20); CHLORIDE 98 mmol/L (98-107); Calcium 8.9 mg/dL (8.4-10.2); Carbon Dioxide 30 mmol/L (22-30); Creatinine 1 0.94 mg/dL (0.66-1.25); EST GLOMERULAR FILTRATION RATE > 60.0 ML/MIN; Glucose 105 mg/dL (74-106); INR 1.03 (0.8-3.0); LIPASE 34 U/L (23-300); PROTIME 10.9 SECONDS (9.4-12.5); Potassium 3.9 mmol/L (3.5-5.1); SGOT/AST 21 U/L (17-59); SGPT/ALT 22 U/L (0-50); SODIUM 135 mmol/L (137-145); Total Protein 7.8 g/dL (6.3-8.2)
[2022-05-29 17:55] LABS: Appearance CLEAR (CLEAR); Bilirubin NEGATIVE (NEGATIVE); Dipstick done @ ? MAIN LAB; Glucose NEGATIVE (NEGATIVE); Ketones NEGATIVE (NEGATIVE); Nitrite NEGATIVE (NEGATIVE); Protein,Urine Dip NEGATIVE (Negative); RBC NEGATIVE Ery/ul (0-5); Specific Gravity 1.015 (1.005-1.025); Urobilinogen 0.2 mg/dL (0-1)
[2022-05-29 17:59] LABS: Bacteria NONE SEEN /HPF (NEGATIVE)
[2022-05-29 18:00] LABS: Urine Cultured Indicated? NO
[2022-05-29] MEDS ORDERED: Zofran 4 MG/2 ML VIAL IV ONE (18:03)
[2022-05-29] MEDS ORDERED: SUBLIMAZE 100 MCG/2 ML IV ONE (18:03)
[2022-05-29] MEDS ORDERED: SUBLIMAZE 100 MCG/2 ML ONE (18:05)
[2022-05-29] MEDS ORDERED: Zofran 4 MG/2 ML VIAL ONE (18:05)
--- NOTE | 2022-05-29 18:09 | ERPHSYRPT ---
- History of Present Illness Historian: patient Exam Limitations: no limitations Patient Subjective Stated Complaint: Abdominal pain/fever Triage Nursing Assessment: Patient ambulated back to ED and transferred self to bed. Patient A+O X 3. Patient's skin pink, warm and dry. Patient complains of right sided abdominal pain 6/10 and fever for 3 days. Patient denies N/V or diarrhea. Abdomen soft and round with BS X 4. Physician History: 51 yo wm w epigastric pain x 3 days. Pain is 8/10, cramping, wo radiation. Nothing makes it better or worse. He denies N/V/D/melena/hematochezia/cough/coryza/dysuria/hematuria/chest pain. Pt had similar pain 1 month ago. Timing/Duration: other (3 days) Quality: cramping Abdominal Pain Onset Location: epigastric Pain Radiation: no radiation Severity of Pain-Max: severe Severity of Pain-Current: severe Modifying Factors: Improves With: nothing Associated Symptoms: denies symptoms, nausea, vomiting Allergies/Adverse Reactions: evolocumab [From [email or web address]] Allergy (Verified 05/29/22 17:14) Home Medications: Amlodipine Besylate 10 mg [Norvasc 10 MG] 10 mg PO DAILY 03/07/17 [History] Clonidine HCl 0.1 mg [Clonidine 0.1 mg Tablet] 0.1 mg PO HS 03/07/17 [History] PANTOPRAZOLE 40 mg Tablet [Protonix 40MG Tablet] 40 mg PO QAM 03/08/17 [History] Zolpidem Tartrate [Ambien] 12.5 mg PO HS 03/08/17 [History] Desvenlafaxine [Desvenlafaxine ER] 100 mg PO DAILY 04/01/18 [History] Doxepin HCl 100 mg PO HS 04/01/18 [History] Fluticasone Propionate [Flonase NASAL] 1 spray NS DAILY 04/01/18 [History] Lisinopril/Hydrochlorothiazide [Lisinopril-Hctz 20-12.5 mg Tab] 1 each PO DAILY 04/01/18 [History] Albuterol Sulfate [Albuterol Sulfate Hfa] 2 puffs .ROUTE QID 04/21/21 [History] Aspirin EC 81 mg [Ecotrin 81 mg] 81 mg PO DAILY 04/21/21 [History] Diclofenac Sodium 50 mg [Voltaren 50 mg] 75 mg PO BID 04/21/21 [History] Isosorbide Mononitrate 30 mg [Imdur 30 MG] 60 mg PO DAILY 04/21/21 [History] Nitroglycerin 0.4 mg Tablet [Nitrostat 0.4 MG Tablet] 1 mg PO DAILY 04/21/21 [History] Hx Tetanus, Diphtheria Vaccination/Date Given: Yes Hx Influenza Vaccination/Date Given: Yes Hx Pneumococcal Vaccination/Date Given: No Immunizations Up to Date: Yes Travel Risk - International Travel Have you traveled outside of the country in past 3 weeks: No - Coronavirus Screening Are you exhibiting any of the following symptoms?: No - Vaccine Status Have you recieved a Covid-19 vaccination: Yes Mold Bunch Trimmer: Unknown - Vaccination Dates Date of 2cond Vaccination (if applicable): na Dates if Unknown: na - Review of Systems Constitutional: No Symptoms, Fever, Chills Eyes: No Symptoms Ears, Nose, & Throat: No Symptoms Respiratory: No Symptoms Cardiac: No Symptoms Abdominal/Gastrointestinal: No Symptoms, Abdominal Pain, No Nausea, No Vomiting, No Diarrhea, No Constipation, No Hematemesis, No Hematochezia, No Melena, No Dysphagia Genitourinary Symptoms: No Symptoms Musculoskeletal: No Symptoms Skin: No Symptoms Neurological: No Symptoms Psychological: No Symptoms Endocrine: No Symptoms Hematologic/Lymphatic: No Symptoms Immunological/Allergic: No Symptoms - Past Medical History Pertinent Past Medical History: Yes Neurological History: Migraines ENT History: No Pertinent History Cardiac History: High Cholesterol, Hypertension Respiratory History: Asthma Endocrine Medical History: No Pertinent History Musculoskeletal History: No Pertinent History GI Medical History: GERD History: No Pertinent History Psycho-Social History: Anxiety, Depression Male Reproductive Disorders: No Pertinent History Other Medical History: SOB with exertion prior to controlling htn 2 months ago. Elevated Platelet count from recent infection. Sees Dr. Martinez - Past Surgical History Past Surgical History: No Neuro Surgical History: No Pertinent History Cardiac: No Pertinent History Respiratory: No Pertinent History Gastrointestinal: No Pertinent History Genitourinary: No Pertinent History Musculoskeletal: No Pertinent History Male Surgical History: No Pertinent History Other Surgical History: lypoma removed on neck - Social History Smoking Status: Never smoker Exposure to second hand smoke: No Drug Use: none Patient Lives Alone: No Significant Family History: no pertinent family hx - Nursing Vital Signs Nursing Vital Signs: Initial Vital Signs Temperature 98.0 F 05/29/22 17:15 Pulse Rate 80 05/29/22 17:15 Respiratory Rate 18 05/29/22 17:15 Blood Pressure 127/75 05/29/22 17:15 O2 Sat by Pulse Oximetry 99 05/29/22 17:15 Pain Scale Pain Intensity 2 WNL - Physical Exam General Appearance: no apparent distress Eye Exam: PERRL/EOMI, eyes nml inspection Ears, Nose, Throat Exam: normal ENT inspection, TMs normal, pharynx normal, moist mucous membranes Neck Exam: normal inspection, non-tender, supple, full range of motion, No meningismus, No mass, No Brudzinski, No Kernig's, No carotid bruit Respiratory Exam: normal breath sounds, lungs clear, airway intact, No respiratory distress Cardiovascular Exam: regular rate/rhythm, normal heart sounds, capillary refill <2 sec, No murmur Gastrointestinal/Abdomen Exam: soft, tenderness (Moderate epigastric TTP wo guarding or rebound) Back Exam: normal inspection, normal range of motion, No CVA tenderness, No vertebral tenderness Extremity Exam: normal inspection, normal range of motion Neurologic Exam: alert, oriented x 3, cooperative, associate II-XII nml as tested, normal mood/affect, nml cerebellar function, nml station & gait, sensation nml Skin Exam: normal color, warm, dry, No rash Lymphatic Exam: No adenopathy SpO2 Interpretation: normal SpO2: 99 O2 Delivery: Room Air - Course Nursing assessment & vital signs reviewed: Yes - CT Exams Abdomen/Pelvis CT Interpretation: Discussed w/radiologist (CT ab-pelvis w IV contrast-nothing acute per Dr. Saavedra) Ordered Tests: Active Orders 24 hr Category Date Time Status IV Insertion STAT Care 05/29/22 17:22 Completed ABDOMEN AND PELVIS W CONTRAST [CT] Stat Exams 05/29/22 18:36 Taken AMYLASE Stat Lab 05/29/22 17:30 Completed CBC W DIFF Stat Lab 05/29/22 17:30 Completed CMP Stat Lab 05/29/22 17:30 Completed LIPASE Stat Lab 05/29/22 17:30 Completed Lactic Acid Stat Lab 05/29/22 17:21 Completed PROTIME WITH INR Stat Lab 05/29/22 17:30 Completed TROPONIN Q4H Lab 05/29/22 17:30 Completed UA W/RFX CULTURE Stat Lab 05/29/22 17:23 Completed UA W/RFX CULTURE Stat Lab 05/29/22 18:09 Ordered Urine Triage Profile Stat Lab 05/29/22 18:08 Ordered Medication Summary Discontinued Medications Generic Name Dose Route Start Last Admin Trade Name Ganesh PRN Reason Stop Dose Admin Fentanyl Citrate 100 mcg 05/29/22 18:03 05/29/22 18:07 Fentanyl Citrate 100 Mcg/2 Ml* Vial IV 05/29/22 18:04 100 mcg STAT ONE Administration Fentanyl Citrate Confirm 05/29/22 18:05 Fentanyl Citrate 100 Mcg/2 Ml* Vial Administered 05/29/22 18:06 Dose 100 mcg .ROUTE .STK-MED ONE Ondansetron HCl 4 mg 05/29/22 18:03 05/29/22 18:07 Ondansetron Hcl 4 Mg/2 Ml Vial IV 05/29/22 18:04 4 mg STAT ONE Administration Ondansetron HCl Confirm 05/29/22 18:05 Ondansetron Hcl 4 Mg/2 Ml Vial Administered 05/29/22 18:06 Dose 4 mg .ROUTE .STK-MED ONE Lab/Rad Data: Laboratory Result Diagrams 05/29/22 17:30 05/29/22 17:30 Laboratory Results 05/29/22 05/29/22 05/29/22 Range/Units 17:30 17:30 17:30 WBC (4.0-10.5) x10^3/uL RBC (4.1-5.6) x10^6/uL Hgb (12.5-18.0) g/dL Hct (42-50) % MCV (78-100) fL MCH (26-32) pg MCHC (32-36) g/dL RDW (11.5-14.0) % Plt Count (150-450) x10^3/uL MPV (7.5-11.0) fL Gran % (36.0-66.0) % Immature Gran % (Auto) (0.00-0.4) % Nucleat RBC Rel Count (0.00-0.1) % Eos # (Auto) (0-0.5) x10^3/uL Immature Gran # (Auto) (0.00-0.03) x10^3u/L Absolute Lymphs (auto) (1.0-4.6) x10^3/uL Absolute Monos (auto) (0.0-1.3) x10^3/uL Absolute Nucleated RBC (0.00-0.01) x10^3u/L Lymphocytes % (24.0-44.0) % Monocytes % (0.0-12.0) % Eosinophils % (0.00-5.0) % Basophils % (0.0-0.4) % Absolute Granulocytes (1.4-6.9) x10^3/uL Basophils # (0-0.4) x10^3/uL PT 10.9 (9.4-12.5) SECONDS INR 1.03 (0.8-3.0) Sodium 135 L (137-145) mmol/L Potassium 3.9 (3.5-5.1) mmol/L Chloride 98 (98-107) mmol/L Carbon Dioxide 30 (22-30) mmol/L Anion Gap 11.5 (5-15) MEQ/L BUN 12 (9-20) mg/dL Creatinine 0.94 (0.66-1.25) mg/dL Estimated GFR > 60.0 ML/MIN Glucose 105 (74-106) mg/dL Lactic Acid (0.4-2.0) Calcium 8.9 (8.4-10.2) mg/dL Total Bilirubin 0.50 (0.2-1.3) mg/dL AST 21 (17-59) U/L ALT 22 (0-50) U/L Alkaline Phosphatase 82 (38-126) U/L Troponin I < 0.012 (0.000-0.034) ng/mL Serum Total Protein 7.8 (6.3-8.2) g/dL Albumin 4.2 (3.5-5.0) g/dL Amylase 50 (30-110) U/L Lipase 34 (23-300) U/L Urinalys Dipstick Clnc Urine Color (YELLOW) Urine Appearance (CLEAR) Urine pH (5-6) Ur Specific [place] (1.005-1.025) POC Urine Protein Conf (Negative) Urine Ketones (NEGATIVE) Urine Nitrite (NEGATIVE) Urine Bilirubin (NEGATIVE) Urine Urobilinogen (0-1) mg/dL Urine Leukocytes (NEGATIVE) Urine WBC (Auto) (0-5) /HPF Urine RBC (Auto) (0-2) /HPF U Epithel Cells (Auto) (FEW) /HPF Urine Bacteria (Auto) (NEGATIVE) /HPF Urine RBC (0-5) Dhruv/ul Ur Culture Indicated? Urine Glucose (NEGATIVE) mg/dL 05/29/22 05/29/22 05/29/22 Range/Units 17:30 17:23 17:21 WBC 11.5 H (4.0-10.5) x10^3/uL RBC 4.08 L (4.1-5.6) x10^6/uL Hgb 12.3 L (12.5-18.0) g/dL Hct 38.0 L (42-50) % MCV 93.1 (78-100) fL MCH 30.1 (26-32) pg MCHC 32.4 (32-36) g/dL RDW 15.0 H (11.5-14.0) % Plt Count 459 H (150-450) x10^3/uL MPV 9.3 (7.5-11.0) fL Gran % 74.2 H (36.0-66.0) % Immature Gran % (Auto) 0.3 (0.00-0.4) % Nucleat RBC Rel Count 0.0 (0.00-0.1) % Eos # (Auto) 0.15 (0-0.5) x10^3/uL Immature Gran # (Auto) 0.04 H (0.00-0.03) x10^3u/L Absolute Lymphs (auto) 1.41 (1.0-4.6) x10^3/uL Absolute Monos (auto) 1.33 H (0.0-1.3) x10^3/uL Absolute Nucleated RBC 0.00 (0.00-0.01) x10^3u/L Lymphocytes % 12.3 L (24.0-44.0) % Monocytes % 11.6 (0.0-12.0) % Eosinophils % 1.3 (0.00-5.0) % Basophils % 0.3 (0.0-0.4) % Absolute Granulocytes 8.48 H (1.4-6.9) x10^3/uL Basophils # 0.04 (0-0.4) x10^3/uL PT (9.4-12.5) SECONDS INR (0.8-3.0) Sodium (137-145) mmol/L Potassium (3.5-5.1) mmol/L Chloride (98-107) mmol/L Carbon Dioxide (22-30) mmol/L Anion Gap (5-15) MEQ/L BUN (9-20) mg/dL Creatinine (0.66-1.25) mg/dL Estimated GFR ML/MIN Glucose (74-106) mg/dL Lactic Acid 0.9 (0.4-2.0) Calcium (8.4-10.2) mg/dL Total Bilirubin (0.2-1.3) mg/dL AST (17-59) U/L ALT (0-50) U/L Alkaline Phosphatase (38-126) U/L Troponin I (0.000-0.034) ng/mL Serum Total Protein (6.3-8.2) g/dL Albumin (3.5-5.0) g/dL Amylase (30-110) U/L Lipase (23-300) U/L Urinalys Dipstick Clnc MAIN LAB Urine Color YELLOW (YELLOW) Urine Appearance CLEAR (CLEAR) Urine pH 7.0 (5-6) Ur Specific [place] 1.015 (1.005-1.025) POC Urine Protein Conf NEGATIVE (Negative) Urine Ketones NEGATIVE (NEGATIVE) Urine Nitrite NEGATIVE (NEGATIVE) Urine Bilirubin NEGATIVE (NEGATIVE) Urine Urobilinogen 0.2 (0-1) mg/dL Urine Leukocytes NEGATIVE (NEGATIVE) Urine WBC (Auto) NONE (0-5) /HPF Urine RBC (Auto) NONE (0-2) /HPF U Epithel Cells (Auto) NONE (FEW) /HPF Urine Bacteria (Auto) NONE SEEN (NEGATIVE) /HPF Urine RBC NEGATIVE (0-5) Dhruv/ul Ur Culture Indicated? NO Urine Glucose NEGATIVE (NEGATIVE) mg/dL - Progress Progress: improved Progress Note: 05/29/22 20:27 100mcg IV Fentanyl/4mg IV Zofran w great improvement in pain Counseled pt/family regarding: lab results, diagnosis, need for follow-up, rad results - Departure Departure Disposition: Home Clinical Impression: Abdominal pain Condition: Stable Critical Care Time: No Referrals: JERILYN BOSE MD [Primary Care Provider] - Follow up/PCP as directed Instructions: Severe Abdominal Pain, Adult (DC) Additional Instructions: Follow up with your family MD in 1-2 days Return to ER for increasing pain or temperature greater than 100.5
[2022-05-29 20:35] VITALS: BP 115/70; PULSE 74
--- NOTE | 2022-05-30 08:42 | XRAY ---
Indication: Epigastric pain. Multiple contiguous axial images obtained through the abdomen and pelvis using 80 cc Isovue 370 contrast. Comparison: April 07, 2022 Lung bases remains clear. Heart not enlarged. Stable small hiatal hernia. Noncontrasted stomach and bowel loops nonobstructed again with normal appendix. Minimal scattered colonic diverticulosis without diverticulitis. No free fluid/air. Stable 7 mm left mid renal cyst. Left mid abdomen again demonstrates tiny nonspecific mesenteric nodes. No pathologic lymphadenopathy. Remaining liver, gallbladder, pancreas, spleen, adrenal glands, kidneys, ureters, and bladder are unremarkable. Again mild scattered aortoiliac calcifications without AAA. Osseous structures intact again with minimal/mild degenerative changes throughout the spine. Impression: 1. Stable small hiatal hernia, colonic diverticulosis, tiny left renal cyst, arteriosclerotic disease, tiny nonspecific mesenteric nodes, and degenerative spondylosis. 2. Remaining CT abdomen/pelvis with contrast exam is negative.
== END 2022-05-29 20:39 | disposition home or self-care (01) ==
LOC: ED 17:07
DX: R10.13 Epigastric pain (principal); I10 Essential (primary) hypertension; Z79.899 Other long term (current) drug therapy
CPT/HCPCS: 36000; 36415; 74177; 80053; 81015; 82150; 83605; 83690; 84484; 85025; 85610; 96374; 96375; 99284; J2405; J3010

== ENCOUNTER 2022-07-03 06:31 | Day surgery (SDC) | payer OTHER ==
[~2022-07-03 06:31] MED LIST: Lactated Ringers 1,000 ML IV SCH
[2022-07-03] MEDS ORDERED: DIPRIVAN 200 MG/20 ML IV ONE ×2 (07:32→07:49)
[2022-07-03] MEDS ORDERED: Versed 2 MG/2 ML Injection ONE (07:32)
[2022-07-03] MEDS ORDERED: SUBLIMAZE 100 MCG/2 ML ONE (07:50)
[2022-07-03] MEDS ORDERED: PHENYLEPHRINE HCL ONE (07:59)
[2022-07-03 08:18] VITALS: PULSE 71
[2022-07-03 08:36] VITALS: BP 92/59; O2SAT 97
--- NOTE | 2022-07-03 14:51 | OP ---
SURGERY DATE/TIME: 07/03/2022 0737 PREOPERATIVE DIAGNOSIS: Abdominal pain, fever intermittently. POSTOPERATIVE DIAGNOSIS: Normal colon. PROCEDURE: Colonoscopy. SURGEON: Dr. Humphrey Ferguson. ANESTHESIA: MAC. Medications given by anesthesia department. HISTORY: The patient is a 51-year-old white male patient who reports he has been having problems with abdominal pain intermittently with high fever. He reports that he has had four CT scans done of the colon. The patient presents now for endoscopic evaluation. He was appraised of the risks of the procedure including the risk of perforation, phlebitis, untoward reaction to medication, bleeding and missed lesions. The patient verbalized his understanding and desired to have the procedure performed. DESCRIPTION OF PROCEDURE: The patient was given the medications by the anesthesia department. He had continuous pulse oximetry, ECG monitoring, intermittent blood pressure monitoring and tidal CO2 monitoring during the examination. He was placed in the left lateral decubitus position. A digital rectal examination was performed and revealed normal anal sphincter tone, no masses and normal prostate. The flexible Olympus pediatric colonoscope was used to intubate the rectum. A view of the colon was developed sequentially to the cecum. Upon insertion and withdrawal, including a short distance in the terminal ileum, no mucosal lesions were encountered. The scope was removed from the patient who tolerated the procedure well and was sent back to outpatient recovery in good condition. The prep was noted to be fair to good.
== END 2022-07-03 08:35 | disposition home or self-care (01) ==
LOC: SDC 06:31
PROVIDERS: ATTEND Family Medicine
DX: R10.9 Unspecified abdominal pain (principal); R50.9 Fever, unspecified
CPT/HCPCS: J2250; J2370; J2704; J3010

== ENCOUNTER 2023-04-02 10:54 | Day surgery (SDC) | payer OTHER ==
--- NOTE | 2023-04-02 10:33 | HP ---
PROCEDURE DATE: 04/02/2023 HISTORY OF PRESENT ILLNESS: 52 year-old with pain bulge worse with lifting in abdomen. [place] he had a hernia with incarcerated fat. PAST MEDICAL HISTORY: History of depression, sinus infection, heartburn. CURRENT MEDICATIONS: Ambien, gabapentin, Wellbutrin, Pristiq, amlodipine, isosorbide mononitrate. ALLERGIES: REPATHA AND STATINS. PAST SURGICAL HISTORY: Had a lipoma removed from the neck in the past. FAMILY HISTORY: Heart disease. SOCIAL HISTORY: No smoking. Occasional alcohol use. REVIEW OF SYSTEMS: 14 systems reviewed. No chest pain or palpitations. Other systems negative or noncontributory other than above and per preadmission questionnaire. PHYSICAL EXAMINATION: BMI 27.98. Height 5' 2". GENERAL: No acute distress. HEENT: Sclerae nonicteric. EOM intact. Oral mucosa moist. NECK: No JVD. CHEST: Equal excursion. Nonlabored breathing. CVS: Regular rate and rhythm. ABDOMEN: Soft. No peritoneal signs. Does have incarcerated hernia. EXTREMITIES: No significant edema. NEURO: Alert and oriented, moving extremities symmetrically. PSYCH: Appropriate mood and affect. IMPRESSION: 1. INCARCERATED VENTRAL HERNIA. RECOMMEND REPAIR. He was discussed options, open vs laparoscopic and minimally invasive. Long discussion. [place] he would benefit from laparoscopic assisted repair of incarcerated ventral hernia with mesh, possible open. General risks of bleeding; infection; risk of trocar injury or hernia; risk of bowel, bladder, or blood vessel injury; risk of clot formation, adhesion, or obstruction; risk of ileus; risk of mesh infection, possible removal; risk of aches, pains, burning, or numbness possibly chronic in nature; risk of mesh fracture or failure possibly occurring issues with viscera obstruction possibly requiring other procedures or ongoing morbidity or mortality; general risks of anesthesia, deep vein thrombosis, pulmonary embolus, or pneumonia; risk of recurring hernias, but not limited to. He agrees to the planned procedure. He needs to receive cardiac clearance. Will proceed with laparoscopic assisted repair incarcerated ventral hernia with mesh, possible open. Otherwise, continue medications for hypertension, heart disease, depression, and heartburn as an outpatient.
[~2023-04-02 10:54] MED LIST changes: +CEFAZOLIN 2 GM-D5W BAG** 2 GM/50 ML ML IV SCH; +Lactated Ringers 1,000 ML IV ONE; +Sensorcaine 0.25% 10 ML ONE
[2023-04-02] MEDS ORDERED: CEFAZOLIN 2 GM-D5W BAG** 2 GM/50 ML ML IV ONE (10:55)
[2023-04-02] MEDS ORDERED: Lactated Ringers 1,000 ML IV ONE (10:55)
[2023-04-02 11:28] LABS: Hematocrit 37.3 % (42-50); Hemoglobin 12.1 g/dL (12.5-18.0); Mean Cell Volume 85.4 fL (78-100); Mean Corpuscular Hemoglobin 27.7 pg (26-32); Mean Corpuscular Hgb Concent. 32.4 g/dL (32-36); Mean Platelet Volume 8.3 fL (7.5-11.0); Platelet Count 537 x10^3/uL (150-450); Red Blood Count 4.37 x10^6/uL (4.1-5.6); Red Cell Distribution Width 17.4 % (11.5-14.0); White Blood Count 7.7 x10^3/uL (4.0-10.5)
[2023-04-02 11:36] LABS: ALKALINE PHOSPHATASE 84 U/L (38-126); ANION GAP 14.7 MEQ/L (5-15); BLOOD UREA NITROGEN 14 mg/dL (9-20); CHLORIDE 102 mmol/L (98-107); Calcium 8.6 mg/dL (8.4-10.2); Carbon Dioxide 26 mmol/L (22-30); Creatinine 1 1.03 mg/dL (0.66-1.25); EST GLOMERULAR FILTRATION RATE > 60.0 ML/MIN; Glucose 108 mg/dL (74-106); Potassium 4.1 mmol/L (3.5-5.1); SGOT/AST 29 U/L (17-59); SGPT/ALT 27 U/L (0-50); SODIUM 138 mmol/L (137-145); Total Protein 7.1 g/dL (6.3-8.2)
[2023-04-02 11:37] VITALS: RESP 16
[2023-04-02] MEDS ORDERED: Zemuron 100 MG/10 ML ONE ×2 (12:31→13:10)
[2023-04-02] MEDS ORDERED: DIPRIVAN 200 MG/20 ML IV ONE (12:31)
[2023-04-02] MEDS ORDERED: SUBLIMAZE 100 MCG/2 ML ONE ×3 (12:31→13:16)
[2023-04-02] MEDS ORDERED: Versed 2 MG/2 ML Injection ONE (12:31)
[2023-04-02] MEDS ORDERED: DILAUDID 2 MG INJECTION ONE (13:19)
[2023-04-02] MEDS ORDERED: Marcaine 0.5%/Epinephrine 10 ML ONE (13:45)
[2023-04-02] MEDS ORDERED: BRIDION 200MG/2ML IV ONE (13:49)
[2023-04-02] MEDS ORDERED: Zofran 4 MG/2 ML VIAL ONE (13:49)
[2023-04-02] MEDS ORDERED: TORAdol 30 mg Injection ONE (13:49)
[2023-04-02 15:06] VITALS: TEMP 97.4
[2023-04-02 15:21] VITALS: O2SAT 91
[2023-04-02 15:22] LABS: Appearance Clear (Clear); Bacteria None Seen /HPF (None Seen); Bilirubin Negative (Negative); Blood Negative (Negative); Epithelial Cells None Seen /HPF (None Seen); Glucose, Urine Negative (Negative); Hyaline Casts NONE SEEN /LPF (0-2); Ketones Negative (Negative); Leukocyte Esterase Negative (Negative); Nitrite Negative (Negative); Ph 6.5 (4.6-8.0); Protein,Urine Dip Negative (Negative); RBC 0-2 /HPF (0-5); Specific Gravity 1.015 (1.005-1.030); Urobilinogen 0.2 mg/dL (0.2); WBC 0-2 /HPF (0-5)
[2023-04-02 15:28] VITALS: BP 144/74; PULSE 85
--- NOTE | 2023-04-02 16:48 | OP ---
SURGERY DATE: 04/02/2023 SURGERY TIME: 1243 PREOPERATIVE DIAGNOSIS: 1. SYMPTOMATIC INCARCERATED VENTRAL HERNIA. POSTOPERATIVE DIAGNOSIS: 1. TWO SEPARATE INCARCERATED VENTRAL HERNIAS REPAIRED IN BLOCK WITH A SINGLE PIECE OF MESH. PROCEDURE: 1. Laparoscopic assisted repair incarcerated ventral hernias X 2 repaired in block with a single piece of mesh (span of defect 3.5 cm). SURGEON: Dr. Cecil Stover. ANESTHESIA: General. ESTIMATED BLOOD LOSS: Minimal. INDICATIONS: As noted above. Risks and benefits explained in detail, but not limited to. Consent obtained. DESCRIPTION OF PROCEDURE AND FINDINGS: The patient was taken to the OR. General anesthesia was induced. Abdomen was prepped and draped in the usual sterile fashion. After official time-out, no disagreement in planned procedure. Transverse incision made in the left lower quadrant. Fascia grasped and pulled upward. Veress needle inserted. Tested with saline. Pneumoperitoneum accomplished insufflating from an opening pressure of 0-15. 5 mm bladeless port and camera inserted without difficulty in lower left mid abdomen and lateral mid abdomen 5 mm port, left lower quadrant 5 mm port, and right mid abdomen 5 mm port. The preperitoneal space was entered and carefully dissection carried down and around. There were two different hernia defects, 1 at the umbilical area and 1 in the lower epigastrium that had the largest amount of incarcerated preperitoneal fat. Total span was approximately 3.5 cm with at least 2 different defects. It took some time as this was quite tight incarcerated hernia with a lot of incarcerated preperitoneal fat. It was carefully reduced finally. Once it was reduced and the umbilical area had been reduced too, it was felt this should be repaired in block with one piece of mesh. [place] the size [address] mesh was the most appropriate size to allow for adequate overlap. After placing some transfascial #1 Vicryl to reapproximate the fascia back to the midline, these were temporarily tagged and an 11-12 port was carefully inserted. The mesh having 4 quadrants, 0 Ethibond was placed. Mesh was wet and then the strap was then removed. It was carefully rolled and gently placed in the abdomen without difficulty. Then, the centering Vicryl suture once the transfascial sutures of #1 Vicryls had been tied and the pressure turned down to 8, the mesh was pulled back up centering it over the defect. The 4 quadrants 0 Ethibonds were pulled up and tied transfascially through the 4 stab wounds. The capture tacker was then tacked about a cm apart around the periphery and a couple placed more centrally to reduce space. Mesh lying nice and flat in a tension free manner. The pressure had been turned down to 8. Good hemostasis noted. Pneumoperitoneum decompressed. The peritoneum was allowed to fall back over the mesh area. Skin incisions closed with 4-0 Vicryl. 0.25 Marcaine local injected along each skin incision and fascial defect. Steri-strips and sterile dressing applied. The patient tolerated the procedure well. There were no immediate complications. Anesthesia placed TAP blocks. Findings discussed with the family out in the waiting area.
== END 2023-04-02 15:40 | disposition home or self-care (01) ==
LOC: SDC 10:54
PROVIDERS: ATTEND Surgery
DX: K43.6 Other and unspecified ventral hernia with obstruction, without gangrene (principal)
CPT/HCPCS: 36415; 80053; 81001; 85027; 87086; J0690; J1170; J1885; J2250; J2405; J2704; J3010

== ENCOUNTER 2023-04-07 16:05 | Emergency (ER) | payer OTHER ==
--- NOTE | 2023-04-07 16:28 | ERPHSYRPT ---
- History of Present Illness Time Seen by Provider: 04/07/23 16:27 Source: patient Exam Limitations: no limitations Patient Subjective Stated Complaint: Pt had a hernia repair on Sunday from Dr. Bucio at [facility] and he began running a fever yesterday, pt states that he acci dentally had a bowel movement in the shower and he is having weird feelings like he needs to go somewhere Triage Nursing Assessment: Pt brought to the ER by his , vitals wnl, rates abdominal pain as 7/10, has been taking tylenol around the clock and took a lukewarm bath with no luck of reducing his fever, pt is afebrile at this time, pulses normal, incision site looks good, pt is pale, pt walked to the room gaurding his abdomen, doesn't appear to be in any distress Allergies/Adverse Reactions: evolocumab [From Repatha Pushtronex] Allergy (Verified 04/07/23 16:19) [id number] Reductase Inhibitor Adverse Reaction (Verified 04/07/23 16:19) Home Medications: Amlodipine Besylate 10 mg [Norvasc 10 MG] 10 mg PO DAILY 03/07/17 [History] Clonidine HCl 0.1 mg [Clonidine 0.1 mg Tablet] 0.1 mg PO HS 03/07/17 [History] PANTOPRAZOLE 40 mg Tablet [Protonix 40MG Tablet] 40 mg PO QAM 03/08/17 [History] Zolpidem Tartrate [Ambien] 12.5 mg PO HS 03/08/17 [History] Albuterol Sulfate [Albuterol Sulfate Hfa] 2 puffs .ROUTE QID 04/21/21 [History] Aspirin EC 81 mg [Ecotrin 81 mg] 81 mg PO DAILY 04/21/21 [History] Isosorbide Mononitrate 30 mg [Imdur 30 MG] 90 mg PO DAILY 04/21/21 [History] Nitroglycerin 0.4 mg Tablet [Nitrostat 0.4 MG Tablet] 1 mg PO DAILY 04/21/21 [History] Gabapentin [Neurontin ] 600 mg PO TID 06/12/22 [History] Doxepin HCl 100 mg PO DAILY 07/03/22 [History] Testosterone Cypionate 200 mg IM UD 07/03/22 [History] Bupropion HCl Xl 150 mg [Wellbutrin XL 150 MG] 150 mg PO DAILY 03/20/23 [History] Desvenlafaxine Succinate [Desvenlafaxine Succinate ER] 100 mg PO DAILY 03/20/23 [History] Fluticasone Propionate [Flovent Diskus] 1 spray INTRANASAL DAILY 03/20/23 [History] Furosemide 20 mg [Lasix 20 mg] 20 mg PO DAILY 03/20/23 [History] Hyoscyamine Sulfate [Levsin-Sl] 1 tab PO UD 03/20/23 [History] Meloxicam [Mobic] 15 mg PO DAILY 03/20/23 [History] Potassium Chloride [Klor-Con M10] 1 tab PO DAILY 03/20/23 [History] dilTIAZem HCl [Diltiazem 24Hr ER (Cd)] 240 mg PO DAILY 03/20/23 [History] Hx Tetanus, Diphtheria Vaccination/Date Given: Yes Hx Influenza Vaccination/Date Given: Yes Hx Pneumococcal Vaccination/Date Given: No Travel Risk - International Travel Have you traveled outside of the country in past 3 weeks: No - Coronavirus Screening Are you exhibiting any of the following symptoms?: No Close contact with a COVID-19 positive Pt in past 14-21 Days: No - Vaccine Status Have you recieved a Covid-19 vaccination: Yes 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 - Vaccination Dates Date of 2cond Vaccination (if applicable): na Dates if Unknown: na - Past Medical History Pertinent Past Medical History: Yes Neurological History: Migraines ENT History: No Pertinent History Cardiac History: High Cholesterol, Hypertension Respiratory History: Asthma Endocrine Medical History: No Pertinent History Musculoskeletal History: No Pertinent History GI Medical History: GERD, Hernia History: No Pertinent History Psycho-Social History: Anxiety, Depression Male Reproductive Disorders: No Pertinent History Other Medical History: SOB with exertion prior to controlling htn, Hiatal hernia. Elevated Platelet count from recent infection. Sees Dr. Martinez. - Past Surgical History Past Surgical History: Yes Neuro Surgical History: No Pertinent History Cardiac: Cardiac Catheterization Respiratory: No Pertinent History Gastrointestinal: Hernia Repair Genitourinary: No Pertinent History Musculoskeletal: No Pertinent History Male Surgical History: No Pertinent History Other Surgical History: lypoma removed on neck - Social History Smoking Status: Never smoker Exposure to second hand smoke: No Drug Use: none Patient Lives Alone: No Significant Family History: no pertinent family hx - Nursing Vital Signs Nursing Vital Signs: Initial Vital Signs Temperature 98.5 F 04/07/23 16:11 Pulse Rate 94 H 04/07/23 16:11 Blood Pressure 135/76 04/07/23 16:11 O2 Sat by Pulse Oximetry 94 L 04/07/23 16:11 Pain Scale Pain Intensity 5 - Physical Exam SpO2: 94 Ordered Tests: Active Orders 24 hr Category Date Time Status 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 STAT Care 04/07/23 17:12 Active IV Insertion STAT Care 04/07/23 17:12 Active Pulse Oximetry (ED) STAT Care 04/07/23 17:12 Active CHEST 1 VIEW (PORTABLE) Stat Exams 04/07/23 17:15 Taken BLOOD CULTURE Stat Lab 04/07/23 17:30 Received CBC W DIFF Stat Lab 04/07/23 17:25 Completed CMP Stat Lab 04/07/23 17:25 Completed Lactic Acid Stat Lab 04/07/23 17:32 Completed PROCALCITONIN Stat Lab 04/07/23 17:25 Completed UA W/RFX UR CULTURE Stat Lab 04/07/23 18:14 Completed Incentive Spirometry UD RT 04/07/23 17:49 Completed Medication Summary Generic Name Dose Route Start Last Admin Trade Name Freq PRN Reason Stop Dose Admin Sodium Chloride 1,000 mls @ 999 mls/hr 04/07/23 17:15 04/07/23 19:21 Sodium Chloride 0.9% 1000 Ml IV 04/07/23 20:15 999 mls/hr .Q1H1M TAYLER Administration Discontinued Medications Generic Name Dose Route Start Last Admin Trade Name Freq PRN Reason Stop Dose Admin Acetaminophen 650 mg 04/07/23 18:41 04/07/23 18:41 Acetaminophen 325 Mg Tablet PO 04/07/23 18:42 650 mg STAT STA Administration Acetaminophen Confirm 04/07/23 18:39 Acetaminophen 325 Mg Tablet Administered 04/07/23 18:40 Dose 650 mg .ROUTE .STK-MED ONE Piperacillin Sod/Tazobactam 100 mls @ 200 mls/hr 04/07/23 17:15 04/07/23 17:30 Sod 3.375 gm/ Sodium Chloride IV 04/07/23 17:44 200 mls/hr STAT ONE Administration Sodium Chloride Confirm 04/07/23 17:24 Sodium Chloride 100ml Mini-Bag Plus Administered 04/07/23 17:25 Dose 100 mls @ ud IV .STK-MED ONE Ondansetron HCl 4 mg 04/07/23 17:15 04/07/23 17:30 Ondansetron Hcl 4 Mg/2 Ml Vial IV 04/07/23 17:16 4 mg STAT ONE Administration Ondansetron HCl Confirm 04/07/23 17:24 Ondansetron Hcl 4 Mg/2 Ml Vial Administered 04/07/23 17:25 Dose 4 mg .ROUTE .STK-MED ONE Piperacillin Sod/Tazobactam Sod Confirm 04/07/23 17:24 Piperacillin/Tazobactam Sodium 3.375 Gm Vial Administered 04/07/23 17:25 Dose 3.375 gm IV .STK-MED ONE Lab/Rad Data: Laboratory Result Diagrams 04/07/23 17:25 04/07/23 17:25 Laboratory Results 04/07/23 04/07/23 04/07/23 Range/Units 18:14 17:32 17:25 WBC (4.0-10.5) x10^3/uL RBC (4.1-5.6) x10^6/uL Hgb (12.5-18.0) g/dL Hct (42-50) % MCV (78-100) fL MCH (26-32) pg MCHC (32-36) g/dL RDW (11.5-14.0) % Plt Count (150-450) x10^3/uL MPV (7.5-11.0) fL Gran % (36.0-66.0) % Immature Gran % (Auto) (0.00-0.4) % Nucleat RBC Rel Count (0.00-0.1) % Eos # (Auto) (0-0.5) x10^3/uL Immature Gran # (Auto) (0.00-0.03) x10^3u/L Absolute Lymphs (auto) (1.0-4.6) x10^3/uL Absolute Monos (auto) (0.0-1.3) x10^3/uL Absolute Nucleated RBC (0.00-0.01) x10^3u/L Lymphocytes % (24.0-44.0) % Monocytes % (0.0-12.0) % Eosinophils % (0.00-5.0) % Basophils % (0.0-0.4) % Absolute Granulocytes (1.4-6.9) x10^3/uL Basophils # (0-0.4) x10^3/uL Sodium (137-145) mmol/L Potassium (3.5-5.1) mmol/L Chloride (98-107) mmol/L Carbon Dioxide (22-30) mmol/L Anion Gap (5-15) MEQ/L BUN (9-20) mg/dL Creatinine (0.66-1.25) mg/dL Estimated GFR ML/MIN Glucose (74-106) mg/dL Lactic Acid 1.2 (0.4-2.0) Calcium (8.4-10.2) mg/dL Total Bilirubin (0.2-1.3) mg/dL AST (17-59) U/L ALT (0-50) U/L Alkaline Phosphatase (38-126) U/L Serum Total Protein (6.3-8.2) g/dL Albumin (3.5-5.0) g/dL Procalcitonin 0.126 H (0.030-0.080) ng/mL Urine Color Yellow (Yellow) Urine Appearance Clear (Clear) Urine pH 6.0 (4.6-8.0) Ur Specific [place] 1.015 (1.005-1.030) Urine Protein Negative (Negative) Urine Glucose (UA) Negative (Negative) mg/dL Urine Ketones Trace A (Negative) Urine Blood Negative (Negative) Urine Nitrite Negative (Negative) Urine Bilirubin Negative (Negative) Urine Urobilinogen 0.2 (0.2) mg/dL Ur Leukocyte Esterase Negative (Negative) U Hyaline Cast (Auto) NONE SEEN (0-2) /LPF Urine Microscopic RBC 0-2 (0-5) /HPF Urine Microscopic WBC 0-2 (0-5) /HPF Ur Epithelial Cells None Seen (None Seen) /HPF Urine Bacteria None Seen (None Seen) /HPF Urine Culture Reflexed NO (NO) 04/07/23 04/07/23 Range/Units 17:25 17:25 WBC 21.1 H (4.0-10.5) x10^3/uL RBC 3.85 L (4.1-5.6) x10^6/uL Hgb 10.8 L (12.5-18.0) g/dL Hct 33.2 L (42-50) % MCV 86.2 (78-100) fL MCH 28.1 (26-32) pg MCHC 32.5 (32-36) g/dL RDW 17.4 H (11.5-14.0) % Plt Count 737 H (150-450) x10^3/uL MPV 8.3 (7.5-11.0) fL Gran % 88.0 H (36.0-66.0) % Immature Gran % (Auto) 0.5 H (0.00-0.4) % Nucleat RBC Rel Count 0.0 (0.00-0.1) % Eos # (Auto) 0.07 (0-0.5) x10^3/uL Immature Gran # (Auto) 0.10 H (0.00-0.03) x10^3u/L Absolute Lymphs (auto) 1.23 (1.0-4.6) x10^3/uL Absolute Monos (auto) 1.07 (0.0-1.3) x10^3/uL Absolute Nucleated RBC 0.00 (0.00-0.01) x10^3u/L Lymphocytes % 5.8 L (24.0-44.0) % Monocytes % 5.1 (0.0-12.0) % Eosinophils % 0.3 (0.00-5.0) % Basophils % 0.3 (0.0-0.4) % Absolute Granulocytes 18.58 H (1.4-6.9) x10^3/uL Basophils # 0.07 (0-0.4) x10^3/uL Sodium 133 L (137-145) mmol/L Potassium 4.2 (3.5-5.1) mmol/L Chloride 98 (98-107) mmol/L Carbon Dioxide 23 (22-30) mmol/L Anion Gap 15.2 H (5-15) MEQ/L BUN 10 (9-20) mg/dL Creatinine 0.99 (0.66-1.25) mg/dL Estimated GFR > 60.0 ML/MIN Glucose 98 (74-106) mg/dL Lactic Acid (0.4-2.0) Calcium 8.3 L (8.4-10.2) mg/dL Total Bilirubin 0.30 (0.2-1.3) mg/dL AST 21 (17-59) U/L ALT 18 (0-50) U/L Alkaline Phosphatase 84 (38-126) U/L Serum Total Protein 7.0 (6.3-8.2) g/dL Albumin 3.8 (3.5-5.0) g/dL Procalcitonin (0.030-0.080) ng/mL Urine Color (Yellow) Urine Appearance (Clear) Urine pH (4.6-8.0) Ur Specific [place] (1.005-1.030) Urine Protein (Negative) Urine Glucose (UA) (Negative) mg/dL Urine Ketones (Negative) Urine Blood (Negative) Urine Nitrite (Negative) Urine Bilirubin (Negative) Urine Urobilinogen (0.2) mg/dL Ur Leukocyte Esterase (Negative) U Hyaline Cast (Auto) (0-2) /LPF Urine Microscopic RBC (0-5) /HPF Urine Microscopic WBC (0-5) /HPF Ur Epithelial Cells (None Seen) /HPF Urine Bacteria (None Seen) /HPF Urine Culture Reflexed (NO) - Departure Departure Disposition: Home Clinical Impression: Right upper lobe pneumonia, Fever Condition: Good Critical Care Time: No Referrals: JERILYN BOSE MD [Primary Care Provider] - Follow up/PCP as directed Instructions: Pneumonia, Adult (DC) Prescriptions: Doxycycline Hyclate 100 mg PO BID 5 Days #10 tablet
[2023-04-07] MEDS ORDERED: Zofran 4 MG/2 ML VIAL IV ONE (17:15)
[2023-04-07] MEDS ORDERED: PIPERACILLIN/TAZOBACTAM 3.375 GM in Sodium Chloride 100ML MINI-BAG PLUS 100 ML IV ONE (17:15)
[2023-04-07] MEDS ORDERED: PIPERACILLIN/TAZOBACTAM IV ONE (17:24)
[2023-04-07] MEDS ORDERED: Zofran 4 MG/2 ML VIAL ONE (17:24)
[2023-04-07] MEDS ORDERED: Sodium Chloride 0.9% 1000 ML 1,000 ML ONE (17:24)
[2023-04-07] MEDS ORDERED: Sodium Chloride 100ML MINI-BAG PLUS 100 ML IV ONE (17:24)
[2023-04-07] MEDS: Sodium Chloride 0.9% 1000 ML 1,000 ML IV SCH ×3 (17:29→19:21)
[2023-04-07 17:32] VITALS: TEMP 100.3
[2023-04-07 17:41] LABS: Absolute Neutrophil Ct (ANC) 18.58 x10^3/uL (1.4-6.9); BASOPHIL % 0.3 % (0.0-0.4); Basophil (Absolute #) 0.07 x10^3/uL (0-0.4); Eosinophil % 0.3 % (0.00-5.0); Eosinophil (Absolute #) 0.07 x10^3/uL (0-0.5); Hematocrit 33.2 % (42-50); Hemoglobin 10.8 g/dL (12.5-18.0); IMMATURE GRAN % 0.5 % (0.00-0.4); Lymphocyte (Absolute #) 1.23 x10^3/uL (1.0-4.6); Lymphocytes % 5.8 % (24.0-44.0); Mean Cell Volume 86.2 fL (78-100); Mean Corpuscular Hemoglobin 28.1 pg (26-32); Mean Corpuscular Hgb Concent. 32.5 g/dL (32-36); Mean Platelet Volume 8.3 fL (7.5-11.0); Monocyte (Absolute #) 1.07 x10^3/uL (0.0-1.3); Monocytes % 5.1 % (0.0-12.0); Platelet Count 737 x10^3/uL (150-450); Red Blood Count 3.85 x10^6/uL (4.1-5.6); Red Cell Distribution Width 17.4 % (11.5-14.0); White Blood Count 21.1 x10^3/uL (4.0-10.5)
[2023-04-07 17:55] LABS: ALBUMIN 3.8 g/dL (3.5-5.0); ALKALINE PHOSPHATASE 84 U/L (38-126); ANION GAP 15.2 MEQ/L (5-15); BLOOD UREA NITROGEN 10 mg/dL (9-20); CHLORIDE 98 mmol/L (98-107); Calcium 8.3 mg/dL (8.4-10.2); Carbon Dioxide 23 mmol/L (22-30); Creatinine 1 0.99 mg/dL (0.66-1.25); EST GLOMERULAR FILTRATION RATE > 60.0 ML/MIN; Glucose 98 mg/dL (74-106); Potassium 4.2 mmol/L (3.5-5.1); SGOT/AST 21 U/L (17-59); SGPT/ALT 18 U/L (0-50); SODIUM 133 mmol/L (137-145)
[2023-04-07] MEDS ORDERED: Sodium Chloride 0.9% 1000 ML 2,000 ML ONE (18:34)
[2023-04-07] MEDS ORDERED: TYLENOL 325 MG ONE (18:39)
[2023-04-07] MEDS ORDERED: TYLENOL 325 MG PO STA (18:41)
[2023-04-07 19:05] LABS: Appearance Clear (Clear); Bacteria None Seen /HPF (None Seen); Bilirubin Negative (Negative); Blood Negative (Negative); Epithelial Cells None Seen /HPF (None Seen); Glucose, Urine Negative (Negative); Hyaline Casts NONE SEEN /LPF (0-2); Ketones Trace (Negative); Leukocyte Esterase Negative (Negative); Nitrite Negative (Negative); Protein,Urine Dip Negative (Negative); RBC 0-2 /HPF (0-5); Specific Gravity 1.015 (1.005-1.030); Urobilinogen 0.2 mg/dL (0.2); WBC 0-2 /HPF (0-5)
[2023-04-07 19:14] LABS: ADD URINE CULTURE? NO (NO)
[2023-04-07] MEDS ORDERED: Vibramycin 100 MG PO ONE (19:59)
[2023-04-07] MEDS ORDERED: Vibramycin 100 MG ONE (20:01)
[2023-04-07 20:03] VITALS: BP 153/85
[2023-04-07 20:05] VITALS: PULSE 97; RESP 22; O2SAT 97
--- NOTE | 2023-04-07 20:23 | XRAY ---
Indication: Fever. Comparison: September 12, 2019 Portable chest demonstrates new right upper lobe patchy airspace disease without consolidation or large effusion. Remaining heart and left lung unremarkable. Bony thorax intact.
== END 2023-04-07 20:06 | disposition home or self-care (01) ==
LOC: ED 16:05
DX: J18.1 Lobar pneumonia, unspecified organism (principal); R50.9 Fever, unspecified; E78.5 Hyperlipidemia, unspecified; I10 Essential (primary) hypertension; Z79.899 Other long term (current) drug therapy
CPT/HCPCS: 36000; 36415; 71045; 80053; 81001; 83605; 84145; 85025; 87040; 93041; 94760; 96360; 96361; 96365; 96374; 99284; J2405; A9270-GY